=== PATIENT | male | born 1975 | race Caucasian/White ===

== ENCOUNTER 2020-01-26 08:38 | Emergency (ER) | payer OTHER ==
[~2020-01-26] VITALS: Ht 195.6 cm; Wt 86.2 kg
--- OUTSIDE RECORDS SUMMARY | ~2020-01-26 | XMS | Encounter Summary ---
Demographics + + + | Address | [address] | | | [place] [address] | + + + | Home Phone | | + + + | Preferred Language | Unknown | + + + | Marital Status | Single | + + + | Voodoo Affiliation | CHR | + + + | Race | White | + + + | Ethnic Group | Not or | + + + Author + + + | Author | [facility] | + + + | Organization | [facility] | + + + | Address | Unknown | + + + | Phone | Unavailable | + + + Support + + +---------+ + | Name | Relationship | Address | Phone | + + +---------+ + | Apoorva Lugo | ECON | Unknown | | + + +---------+ + Care Team Providers + +------+ + | Care Student Services Dean Name | Role | Phone | + +------+ + | No Pcp Per Patient | PCP | Unavailable | + +------+ + Reason for Visit + + + | Reason | Comments | + + + | Medication Refill | | + + + AUTH/CERT +--------+--------+ + + + + | Status | Reason | Specialty | Diagnoses / | Referred By | Referred To | | | | | Procedures | Contact | Contact | +--------+--------+ + + + + | Closed | | Emergency | | | Emergency | | | | Medicine | | | Dept Hrc | | | | | | | [address] | | | | | | | [facility] | | | | | | | [facility] | | | | | | | [facility] | | | | | | | [place], [place] | | | | | | | [address] | | | | | | | Phone: | | | | | | | [phone] | +--------+--------+ + + + + Encounter Details +--------+ + + + + | Date | Type | Department | Care Team | Description | +--------+ + + + + | 10/13/ | Emergency | [facility] Emergency | Mang, | | | 2010 | | Department [address] | MD William | | | | | [facility] | Inderjit Madrid | | | | | [facility] | [facility] | | | | | [place], [place] | [place] | | | | | [address] | EMERGENCY | | | | | [phone] | [place] [address] | | | | | | [phone] | | | | | | | | +--------+ + + + + Social History + +-------+ +--------+------+ | Tobacco Use | Types | Packs/Day | Years | Date | | | | | Used | | + +-------+ +--------+------+ | Current Every Day | | | | | | Smoker | | | | | + +-------+ +--------+------+ + + | Comments: 1/2 PPD | + + + + +---------+ + | Alcohol Use | Drinks/Week | oz/Week | Comments | + + +---------+ + | Yes | | | rarely | + + +---------+ + + + + | Sex Assigned at | Date Recorded | | | | + + + | Not on file | | + + + documented as of this encounter Last Filed Vital Signs + + + + + | Vital Sign | Reading | Time Taken | Comments | + + + + + | Blood Pressure | 187/79 | 10/13/2010 7:07 AM | | | | | PDT | | + + + + + | Pulse | 94 | 10/13/2010 7:07 AM | | | | | PDT | | + + + + + | Temperature | 36.7 C (98.1 F) | 10/13/2010 7:07 AM | | | | | PDT | | + + + + + | Respiratory Rate | 18 | 10/13/2010 7:07 AM | | | | | PDT | | + + + + + | Oxygen Saturation | 98% | 10/13/2010 7:07 AM | | | | | PDT | | + + + + + | Inhaled Oxygen | - | - | | | Concentration | | | | + + + + + | Weight | - | - | | + + + + + | Height | - | - | | + + + + + | Body Mass Index | - | - | | + + + + + documented in this encounter Discharge Instructions Instructions Dalreen Brown RN - 10/13/2010Thank you for coming to [facility] for your care. Vika rockwell follow up with a primary care physician as we discussed, and if you have any concerns whatsoever, such as a worsening or change in symptoms, please feel free to [facility] at any time. If you have any further questions about your diagnosis, any medication you were prescribed, or whom you should follow up with, please feel free to ask t o have Dr. Dorsey return to the room to clarify any of these issues. Please use pain medications as directed. Please make pain medications last until your appo intment. You must keep your clinic appointment as scheduled. Low Cost Provider Referral Information by [facility] *[facility] Wait time to be seen can be up to 30 days New patients w/o insurance are seen the first of the month, patients to call in @8am [address] [place] [address] *[facility] Low income uninsured individuals and families basis health care services for acute health i ssues managing care for diabetes, asthma, and hypertension, specialist referrals women's exa ms; appts only; Sunday and evening, only 4-8 PM & Sunday 6p-8p. (Note: Planning to increase hours possibly ) [address] [place] [address] [facility] [address] [facility] [address] [place], [place] [address] New Patients: [phone] Mon-Fri 8:30 am to 5pm [facility] Eleven primary care clinics in the [facility] Services are available to uninsured or underinsured persons Costs of services are based on sliding scale Must fill out financial Assistance Application Contact [phone] ([place]) [phone] ([place]) or [phone] to obtain application M-F 8-6:45 *[facility] Financial screening required before an appointment will be made. [address] [facility] [address] Low Cost Provider Referral Information by [facility] *[facility] *[facility] Two decedents of federal recognized [place], required. New patient seen within one week. [address] [place], [place] [address] *[facility] [address], [place] [address] *Outside In Emphasis of patients under age 30 but will serve anyone of low or no income and the uninsur ed. [address] [place], [place] [address] *[facility] Must have low income and no insurance. No walk-in services. [facility] residents only. [address] [place], [place] [address] *[facility] [place] [facility] Locations Clinic for uninsured people only Does not see patients with [place] health Plan or other insurance coverage Dermatology and Podiatry available twice/month [address] [place], [place] [address] *[facility] all ages. Clinics held on Sunday and Sunday evenings. Doors open at 5:30 pm. Patients are accepted until 8 pm, or until clinic fills. No appointment required. [address] [place], [place] [address] (located next to the [facility]) *[facility] for all ages. Clinics held on evenings. Call for an appointment for the [facility]. [phone]. Doors open at 6:30 p.m. Appointment required. Located inside the [facility] at [address] [place] [address] *[facility] A [facility] clinic offering health services to low income uninsured adult residents of [facility] following zip codes: [address], [address], [address], [address], and [address] Does not provide pediatric care, mental health services, and obstetric care, or de ntal care. walk-ins: 5:30 to 8:30 pm with follow ups on Sunday pm. Age Restrictions: Between age 18 and 64. Note will be moving soon to the [facility] at [address] [facility]. [address] [place] [address] *[facility] [address] [place] [address] Serving uninsured and underinsured children up to age 21. [facility] *Federally Qualified Health Clinics [facility]ointments 1 week out M-F 9am - 7pm, S 10am - 2pm [address]. [address] [place], [place] [address] [facility] ([facility] residents, only) [address] [place] [address] [address] [facility] *Federally Qualified Health Clinics [facility] ([facility] residents only) Vision care at [place] and [facility] Mobile van unit for health care Mobile van unit for dental care for children only Children's dental care at [facility], and [place] [address] [facility] [address] [place] [address] [phone] [place], [place] [address] [place], [place] [address] [phone] [facility] (school based health center) [address] [place], [place] [id number] [facility] Provides free urgent care for uninsured individuals and families in [address] [place] [address] [phone] Tues & Thurs 4:30-6:30 pm, ONLY Weds 4:30-6:30 pm, ONLY [facility] *Federally Qualified Health Clinics [facility] (now call center for [facility] and [facility]) [facility] [address] [place] [address] [facility] [address] [place], [place] [id number] [facility] [address] [place], [place] [id number] [facility] Call for an appointment [address] [place] [place] [address] Dental Clinics Dental Service Referral Information for low Income/sponsored/OHP Standard patients. [facility] [address] [place], [place] [phone] [facility] Dental Services [facility] [address] [facility] [address], [place] [address] Please call [phone] for referral between 7:30 am and 6:30 pm to any of the clinics lis emmanuelle below. Service for OHP-[facility] Dental enrollees and emergency service fore uninsured OPH Plus-Co mprehensive dental services for adults and children. No fees for OHP covered with [facility]. Uninsured - Sliding fee based on family size and income. [facility] [address] [place] [address] [place] [address] [phone] For Uninsured [phone] Hours: M-F, 7:30-6:00 pm Hours: M-F 7:30-6:00 pm [facility] [address] [place] [address] [place] [address] [phone] Hours: M-F 7:30-6:00 pm Hours: M-F 7:30-6:00pm Servicfor OHP - [facility] Dental Access Program [phone] Hours: M-F 7:30-6:00pm Provides triage and referral for uninsured, low income adults a and children Refers to the above four clinics for dental care for emergency dental care and limited rout ine care Serve [facility] residents $25 nominal fee required at each visit Additional fees based on family size and income. DENTAL CARE FOR CHILDREN [facility] Center located at [facility] Provides general dentistry for K-12 registered [facility] student Call for appointment, no walk-ins Must qualify for free and reduced lunch and bring approval sheet to dental appointment Sees children with no dental insurance and no OHP No charge for service-donations encouraged [facility] [address] [place] [address] Hours: 8:30-3:00 during academic school year [facility] Dental Clinic Specialized only for children with special health needs and medically fragile children, crayon sawyer niofacial defects, and speech problems. Fees are less than regular clinic fees. [address] 7[address] [place] [address] Hours: M-F 8:30-5:00 to schedule appointments [phone] [facility] Dental Check and Dental Aid Program Annual routine dental checks at schools for low-income children. Contact for annual schedule of dental check dates and school location [address] [place] [address] Contact: Mr. Chen Email: [email or web address] [facility] Provides dental services up to age 21 Call for appointments Accepts most insurance - Medicaid DSHS, OHP, discounts for un-insured [address] [place] [address] Hours: M 2-7, -F 9-7, Sat 9-2 DENTAL CARE FOR THE ELDERLY AND MENTALLY DISABLED [facility] Provide free dental care to low income individuals with developmental disabilities, permane nt disabilities, and the elderly Do not provide emergency care Call for appointments, the wait lists up to one year long in some areas. [address] [address] [place] [address] Hours: - 8-4:30 [facility] Provides services to OHP patients who are non-ambulatory or who have a severe developmental disability or a mental impairment. Services are provided in various settings (nursing homes, group homes, private homes) for t hose who are unable to go to a dental clinic for care. Will provide care for hospital based dental surgery under general anesthesia if patient's n eeds cannot be met in the home setting. [address] [place] [address] [facility] Provides dental care for patient 55 and older; wheelchair accessible New patients: $35 basic fee plus required full mouth x-ray for ($50 $85 total) Returning patients: 20-40% less than a regular clinic [address] [place] [address] Hours: -F 8:30-5 [facility] Provides dental care for low income, uninsured senior age 64 and older Does not provide emergency care or dentures [facility] resident only Call for application packet, after application is processed, referral to a participating de ntist is made 50% reduction for regular dental procedures [address] [place] [phone] CLEANING, X-RAYS, and GENERAL DENTISTRY TeresoBernardino Liu [facility], [place] [facility] Clinic operates on student schedules; closed olivarez Patients seen by appointment only Serves the [facility] Wheelchair access Dental hygiene, teeth cleaning, X-rays, dental exams, fluoride treatments See website for charges [address] [facility] [place] [address] [facility] of Dentistry General Dentistry M-F 8-5 pm Free evaluation Discounted services including dentures, oral surgery, and orthodontics Does not accept Medicaid Specialty clinics [address] [place] [address] [facility] ([facility]) Services by appointment only Emergency services and extraction not provided Provides Hygiene services and X-rays Reduced fees: Children $20, adults $40 (pricing subject to change) Discount for adults 62 years and older [address] [place] [address] [facility] Currently accepting emergencies only, New patients are not currently being accepted M-Th 7:30 to 7; F 7:30 - 5; Sat 8-4 [address] [place] [address] DENTAL VANS [employer] Mobile Dental Program Hotline number: 893-134-4177 Provides free dental to low-income individuals with urgent needs who do not have access to dental care, insurance, or money to pay for services Appointment required. Must call hotline number and leave name and contact number. If appo intment available they will r/c and indicate location and time of appointment Three vans available for [facility], one for [place] M[facility]AL HEALTH SERVICES [facility] Provides mental health and additions treatment services in four different clinics Provides transitional and permanent housing for people with psychiatric disabilities Crisis Line: [phone] Access, Information, and Referral: [phone] [facility] ([facility]) Takes non-sponsored/OHP Take Bus #4 from downwn - it stops in front of clinic Prescirbers available until 10pm Counselors available 18/12 Entrance is at the corner of [address] [place] [address] [facility] [address] [place] [address] [facility] [address], . [place] [address] [facility] [place] [address] [place] [address] PRESCRIPTION DRUG PROGRAMS [place] Prescription Drug Program Available to any [place] resident that is uninsured or underinsured for prescription drug co verage. Enroll on line @ www.opdp.org or by calling Partnership for Prescription Assistance Helps qualifying patients who lack prescription coverage get the medicines they need throug h the public or private program that is right for them Enroll on line @ www.ppars.org or by calling $4 Prescription Programs Available at participating providers such as Syeda, Jeanette, Ramone, etc. documented in this encounter Medications at Time of Discharge + + + +---------+--------+ + | Medication | Sig | Dispensed | Refills | Start | End Date | | | | | | Date | | + + + +---------+--------+ + | acetaminophen | Take 325 mg by mouth | | 0 | | | | (TYLENOL) 325 mg | every four hours as | | | | | | Oral Tablet | needed. | | | | | + + + +---------+--------+ + documented as of this encounter ED Notes Darleen Brown RN - 10/13/2010 7:54 AM PDTRN DISCHARGE NOTE: The patient verbalizes understanding of written discharge/home care instructions as a evide nced by Follow-up plan of care reviewed w/ patient, Pt voiced understanding of plan of care and Written dx instructions reviewed w/ patient. The patient was discharged Ambulatory via Bus with self in no emergent distress. William Rodriguez MD - 10/13/2010 7:14 AM PDT Emergency Department Provider Note 7:14 AM, WILLIAM FRY MD, Faculty Note Provider and Medical Decision Making Note: HPI : Pt is a 35 y/o male who presents to the ED c/o abdominal pain at the site of his ingu inal hernia. Pt was seen in the ED 3 days ago for the same complaint and was given oxycodone for pain control. Pt states that he has an appointment with a surgeon on October 21. Denies n ausea, vomiting and fevers. Pain is the same pain he has been having for several months. No dysuria, hematuria or testicular pain. Review of Systems: A complete review of systems was performed and was negative except as noted in the HPI Reviewed old charts/Medical records for the following findings: Previous notes and results significant to this ED visit. Allergies: Allergies Allergen Reactions Sulfa (Sulfonamide Antibiotics) Angioedema Ibuprofen Aspirin Tramadol Hives PMHx: Past Medical History Diagnosis Date Other general symptoms gamez, chronic back pain Back pain Fam Hx: Reviewed and found to be noncontributory to today's ED visit. Social Hx: History Substance Use Topics Smoking status: Current Everyday Smoker Smokeless tobacco: Never Used Comment: 1/2 PPD Alcohol Use: Yes rarely Denies illicit drug use Physical Exam: ED Triage Vitals BP Temp Pulse Resp SpO2 10/13/10 0707 10/13/10 0707 10/13/10 0707 10/13/10 0707 10/13/10 0707 187/79 mmHg 36.7 C 94 18 98 % PE: BP 187/79 | Pulse 94 | Temp 36.7 C | RR 18 | SpO2 98% General: NAD HEENT: NC+AT, MMM, no oropharyngeal erythema or exudates NECK: Supple LUNGS: CTA b/l HEART: RRR, no murmurs ABDOMEN: Soft, NT+ND, L inguinal mass that is mildly tender but easily reducible. : No testicular tenderness or masses. No erythema. EXTREMITIES: No edema NEURO: A+Ox3, nl gain ED COURSE: Pt presents with chronic abdominal pain at site of L inguinal hernia. No signs or symptoms concerning for incarceration or strangulation. No symptoms of SBO. Afebrile. Benign abdomina l exam. Presentation not concerning for testicular torsion. Pt advised that he needs to foll ow up with a surgeon. He was given a prescription for 24 tabs of oxycodone and was advised t hat he would not receive further pain medication prescriptions from the ED until he follows up with a PCP or surgeon. Pt discharged home with instructions to follow up with a PCP and t o return to the ED for worsening symptoms. Pt voiced understanding of the instructions and w as comfortable with the plan. Condition Upon Discharge: Stable IMPRESSION: 1. Abdominal pain 2. Left inguinal hernia pain Anum Benavides RN - 10/13/2010 7:10 AM PDTPt seen here on 10/10 for left sided abd pain, diagnosed with left inguinal hernia and instructed to follow up with surgery and PCP. Pt has an appointment with surgery October 21, but is out of pain meds and has no PCP. Pt abd pain has not changed since last visit, denies n/v/d. documented in this encounter Miscellaneous Notes Scan - Other, Faculty - 10/14/2010 10:50 AM PDT can - Other, Faculty - 10/14/2010 10:42 AM PDT D Teaching Notes - William Major MD - 10/13/2010 7:14 AM PDTTeaching Attestation: I saw and evaluated the p atient and discussed the findings, diagnosis and management of the patient with the Resident Dr. Dorsey. I performed and confirmed the reyes portions of the service. The resident and I co-wrote the ED Provider Note using the Farm[employer] share function. I agree with the documentation, findings, and plan of care except as noted by me in bold. documented in thi s encounter Plan of Treatment Not on filedocumented as of this encounter Visit Diagnoses + + | Diagnosis | + + | Inguinal hernia - Primary Inguinal hernia without mention of obstruction or gangrene, | | unilateral or unspecified, (not specified as recurrent) | + + documented in this encounter"
--- OUTSIDE RECORDS SUMMARY | ~2020-01-26 | XMS | Encounter Summary ---
Demographics + + + | Address | [address] | | | [place] [address] | + + + | Home Phone | | + + + | Preferred Language | Unknown | + + + | Marital Status | Single | + + + | Hindu Affiliation | CHR | + + + | Race | White | + + + | Ethnic Group | Not or | + + + Author + + + | Author | [facility] | + + + | Organization | [facility] | + + + | Address | Unknown | + + + | Phone | Unavailable | + + + Support + + +---------+ + | Name | Relationship | Address | Phone | + + +---------+ + | Apoorva Lugo | ECON | Unknown | | + + +---------+ + Care Team Providers + +------+ + | Care Rehabilitation Therapy Aide Name | Role | Phone | + +------+ + | No Pcp Per Patient | PCP | Unavailable | + +------+ + Reason for Visit + + + | Reason | Comments | + + + | Dental Pain | | + + + Encounter Details +--------+ + + + + | Date | Type | Department | Care Team | Description | +--------+ + + + + | 06/25/ | Emergency | [facility] | Bob Burnett, | | | 2009 | | Department [address] | [facility] [address] | | | | | [address] | Division [facility] | | | | | [facility] | [address] [place], [place] | | | | | [place], [place] | [address] | | | | | [address] | [phone] | | | | | [phone] | | | +--------+ + + + [...] + + + | Blood Pressure | 156/84 | 06/25/2009 12:07 PM | | | | | PST | | + + + + + | Pulse | 89 | 06/25/2009 12:07 PM | | | | | PST | | + + + + + | Temperature | 36.8 C (98.2 F) | 06/25/2009 12:07 PM | | | | | PST | | + + + + + | Respiratory Rate | 16 | 06/25/2009 12:07 PM | | | | | PST | | + + + + + | Oxygen Saturation | 97% | 06/25/2009 12:07 PM | | | | | PST | | + + + + + | Inhaled Oxygen | - | - | | | Concentration | | | | + + + + + | Weight | 99.8 kg (220 lb) | 06/25/2009 12:07 PM | | | | | PST | | + + + + + | Height | - | - | | + + + + + | Body Mass Index | - | - | | + + + + + documented in this encounter Discharge Instructions Instructions Bob Burnett FNP - 06/25/2009Please see your dentist on Sunday as planned . Return to the emergency department if you have facial swelling, problems swallowing or fe vers. You will not receive any further pain medication refills. Dental Pain (Tooth Ache) You have been seen by your caregiver because of a tooth ache. This may be caused by cavitie s (tooth decay) which expose the nerve of the tooth to air and hot or cold temperatures, whi ch cause pain. It may come from an infection or abscess (also called a boil or furuncle) becca und your tooth, also often caused by dental caries (tooth decay). This causes the pain you a re having. Diagnosis (how do you tell what is wrong) Your caregiver can diagnose this problem often by exam. Treatment If caused by an infection it may be treated with antibiotics (medications which kill shoaib ms) and pain medications as prescribed by your caregiver. Take medications as directed. You may take ibuprofen (Advil or Motrin), acetaminophen (Tylenol), or both, as needed for pain or temperature. Ibuprofen and acetaminophen may be taken together in their regular dosages. Whether the tooth ache today is caused by infection or dental disease, it is advisable to s ee your dentist as soon as possible for further care. Call or return to this location if: The exam and treatment you received today has been provided on an emergency basis only. Thi s is not a substitute for complete medical or dental care. If your problem worsens or new sy mptoms (problems) appear, and you are unable to arrange prompt follow-up care with your dent ist, call or return to this location. [facility] 2007 [employer]. documented in this encounter ED Notes Mara Laura - 06/25/2009 12:48 PM PSTRN DISCHARGE NOTE: The patient verbalizes understanding of written discharge/home care instructions as a evide nced by Follow-up plan of care reviewed w/ patient, Pt voiced understanding of plan of care and Written dx instructions reviewed w/ patient. The patient was discharged Ambulatory via Private Vehicle with self in no emergent distress. Monica TerrieDAREN oscar - 06/25/2009 12:46 PM PST Dental Pain 34 yo male with persistent LL dental pain for 2 weeks. This is his fourth visit for the s [place] complaint. He denies, fever, oral edema or nausea. He has been taking penicillin with so me improvement in pus draining from tooth # 19. He states he has been taking 2 tablets of o xycodone Q 4 hr to keep the pain tolerable. He has been unable to sleep and states he has so me relief standing in a hot shower. Review of Systems Constitutional: Negative for fever, chills, weight loss and malaise/fatigue. HENT: Positive for dental problem. Negative for ear pain, congestion, sore throat and neck pain. Eyes: Negative for blurred vision and photophobia. Respiratory: Negative for cough, hemoptysis and stridor. Cardiovascular: Negative for chest pain and palpitations. Gastrointestinal: Negative. Negative for nausea and vomiting. Genitourinary: Negative. Musculoskeletal: Negative for myalgias and back pain. Skin: Negative for rash and itching. No h/o skin rash Psychiatric/Behavioral: Negative for substance abuse. Denies IVDU Past Medical History Diagnosis Date Other general symptoms gamez, chronic back pain Allergies Allergen Reactions Ibuprofen Aspirin Tramadol Hives Social History reports that he has been using tobacco. He reports that he drinks alcohol. He reports th at he does not currently use illicit drugs. Drove self to ED works 2 days a week [employer], short on money as work is slow. ED Triage Vitals BP Temp Pulse Resp SpO2 06/25/09 1207 06/25/09 1207 06/25/09 1207 06/25/09 1207 06/25/09 1207 156/84 mmHg 36.8 C 89 16 97 % Physical Exam Nursing note and vitals reviewed. Constitutional: He is oriented. He appears well-developed and well-nourished. He appears no t diaphoretic. He appears distressed. HENT: Head: Normocephalic and atraumatic. Right Ear: External ear normal. Left Ear: External ear normal. Nose: Nose normal. Mouth/Throat: Oropharynx is clear and moist. No oropharyngeal exudate. Neck: Normal range of motion. Single shoty L cervical node. Cardiovascular: Normal rate, regular rhythm and normal heart sounds. No murmur heard. Pulmonary/Chest: Effort normal and breath sounds normal. He has no wheezes. He has no rales . Abdominal: Soft. Musculoskeletal: Normal range of motion. Lymphadenopathy: He has cervical adenopathy. Neurological: He is alert and oriented. He has normal reflexes. Skin: Skin is warm and dry. He is not diaphoretic. Clinical Course: Triaged to , vital signs and nursing notes reviewed. I have reviewed the medications, all ergies, past medical history, social history, and family history. Differential diagnosis includes: dental abscess, dental caries or early tooth root infectio n. Given nothing for pain. As he drove to the ED. No evidence of dental abscess. He was advise d no further pain med refill from ED. He may have a persistent infection so we will change to clindamycin and peridex. Advised to f/u with primary care dentist in 4 days as planned Assessment and Plan: Encounter Diagnoses Code Name Primary? 525.9V Dentalgia rx: New Prescriptions CHLORHEXIDINE 0.12 % MUCOUS MEMBRANE MOUTHWASH Take 15 mL by mouth every six hours. CLINDAMYCIN 300 MG ORAL CAPSULE Take 1 Cap by mouth every six hours. OXYCODONE, IMMEDIATE RELEASE, 5 MG ORAL TABLET Take 2 Tabs by mouth every six hours as needed for severe pain. F/U with dentist on Sunday. Given precautions to return for fever, facial swelling or diff iculty swallowing. No further pain meds. DAREN RAMIREZ Patricio Hernandez RN - 06/25/2009 12:07 PM PSTPt c/o 7/10 L lower molar pain x 2 weeks. Has appt with dentist to day but can't afford co-pay. appt rescheduled for Tues when pt has money. Pt seen here for same tooth, given Rx for PCN, no improvement. No fever/chills. No obvious facial swelling . Airway intact. docum ented in this encounter Miscellaneous Notes ED Teaching Notes - Bob Burnett FNP - 06/26/2009 9:03 PM PSTNo resident note needed cchava - Carlyle, Lucinda y - 06/25/2009 12:49 PM PST documented in this encounter Plan of Treatment Not on filedocumented as of this encounter Visit Diagnoses + + | Diagnosis | + + | Dentalgia Unspecified disorder of the teeth and supporting structures | + + documented in this encounter"
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
--- OUTSIDE RECORDS SUMMARY | ~2020-01-26 | XMS | Encounter Summary ---
Demographics + + + | Address | [address] | | | [place] [address] | + + + | Home Phone | | + + + | Preferred Language | Unknown | + + + | Marital Status | Single | + + + | Jainism Affiliation | CHR | + + + | Race | White | + + + | Ethnic Group | Not or | + + + Author + + + | Author | [facility] | + + + | Organization | [facility] | + + + | Address | Unknown | + + + | Phone | Unavailable | + + + Support + + +---------+ + | Name | Relationship | Address | Phone | + + +---------+ + | Apoorva Lugo | ECON | Unknown | | + + +---------+ + Care Team Providers + +------+ + | Care Ropewalk Rope Maker Name | Role | Phone | + [...] | +--------+ + + + + | 06/14/ | Emergency | [facility] Emergency | Flaquita Lim | | | 2009 | | Department [address] | | | | | [address] | | | | | | [facility] | | | | | | [place], [place] | | | | | | [address] | | | | | | [phone] | | | +--------+ + + + + Social History + +-------+ +--------+------+ | Tobacco Use | Types | Packs/Day | Years | Date | | | | | Used | | + +-------+ +--------+------+ | Current Every Day | | | | | | Smoker | | | | | + +-------+ +--------+------+ + + +---------+ + | Alcohol Use | Drinks/Week | oz/Week | Comments | + + +---------+ + | No | | | | + + +---------+ + + + [...] + + + | Blood Pressure | 164/90 | 06/14/2009 10:29 AM | | | | | PST | | + + + + + | Pulse | 107 | 06/14/2009 10:29 AM | | | | | PST | | + + + + + | Temperature | 36.4 C (97.5 F) | 06/14/2009 10:29 AM | | | | | PST | | + + + + + | Respiratory Rate | 16 | 06/14/2009 10:29 AM | | | | | PST | | + + + + + | Oxygen Saturation | 98% | 06/14/2009 10:29 AM | | | | | PST | | + + + + + | Inhaled Oxygen | - | - | | | Concentration | | | | + + + + + | Weight | 99.8 kg (220 lb) | 06/14/2009 10:29 AM | | | | | PST | | + + + + + | Height | - | - | | + + + + + | Body Mass Index | - | - | | + + + + + documented in this encounter Discharge Instructions Instructions Flaquita Lim, SAMPLE BOOK MAKER - 06/14/2009Dental Pain (Tooth Ache) You have been seen [...] ist, call or return to this location. ExitCare Patient Information 2007 Tauntr. Low Cost Provider Referral Information by [facility] *[facility] Wait time to be seen can be up to 30 days New patients w/o insurance are seen the first of the month, patients to call in @8am [address] [place] [phone] *[facility] Low income uninsured individuals and families basis health care services for acute health i ssues managing care for diabetes, asthma, and hypertension, specialist referrals women's exa ms; appts only; Sunday and evening, only 4-8 PM & Sunday 6p-8p. (Note: Planning to increase hours possibly ) [address] [place] [address] [address] [place] Nicole [address] [place], [place] [address] New Patients: [phone] Sun-Sun 8:30 am to 5pm [facility] Eleven primary care clinics in the [facility] Services are available to uninsured or underinsured persons Costs of services are based on sliding scale Must fill out financial Assistance Application Contact [phone] ([place]) [phone] ([place]) or [phone] to obtain application M-F 8-6:45 *[facility] Financial screening required before an appointment will be made. [address] [facility] [address] Low Cost Provider Referral Information by [facility] *Federally Qualified Health Clinics *[facility] Two decedents of federal recognized [place], required. New patient seen within one week. [address] [place], [place] [address] *[facility] [address] [place], [place] [id number] *Outside In Emphasis of patients under age 30 but will serve anyone of low or no income and the uninsur ed. [address] [place], [place] [id number] *[facility] Must have low income and no insurance. No walk-in services. [facility] residents only. [address] [place], [place] [address] *[facility] Locations Clinic for uninsured people only Does not see patients with [place] health Plan or other insurance coverage Dermatology and Podiatry available twice/month [address] [place], [place] [address] *[facility] Services all ages. Clinics held on Sunday and Sunday evenings. Doors open at 5:30 pm. Patients are accepted until 8 pm, or until clinic fills. No appointment required. [address] [place], [place] [address] (located next to the [facility]) *[facility] Services for all ages. Clinics held on evenings. Call for an appointment for the [facility]. [phone]. Doors open at 6:30 p.m. Appointment required. Located inside the [facility] at [address] [place], [place] [address] *[facility] A neighborhood clinic offering health services to low income uninsured adult residents of [facility] following zip codes: [address], [address], [address], [address], and [address] Does not provide pediatric care, mental health services, and obstetric care, or de ntal care. walk-ins: 5:30 to 8:30 pm with follow ups on Sunday pm. Age Restrictions: Between age 18 and 64. Note will be moving soon to the [facility] at [address] [facility]. [address] [place] [address] *[facility] [address] [place] [address] Serving uninsured and underinsured children up to age 21. [facility] *[facility] Appointments 1 week out M-F 9am - 7pm, S 10am - 2pm [address] [place], [place] [address] [facility] ([facility] residents, only) [address] [place], [place] [address] [address] [facility] *Federally Qualified Health Clinics [facility] ([facility] residents only) Vision care at [place] and [facility] Mobile van unit for health care Mobile van unit for dental care for children only Children's dental care at [place], [place], and [place] [address] [facility] [address] [place], [place] [phone] [place], [place] [address] [place], [place] [address] [phone] [facility] (school based health center) [address] [place], [place] [id number] [facility] Provides free urgent care for uninsured individuals and families in [address] [phone] Tues & Thurs 4:30-6:30 pm, ONLY Weds 4:30-6:30 pm, ONLY [facility] *Federally Qualified Health Clinics [facility] (now call center for [facility] and [facility]) [place] [address] [place], [place] [address] [facility] [address] [place] [address] [address] [place] [facility] [address] [place] [address] [facility] Call for an appointment [address] [place], [place] [id number] Dental Clinics Dental Service Referral Information for low Income/sponsored/OHP Standard patients. [facility] [address], [place] [phone] [facility] Dental Services [facility] [address] [facility]. 9th [place] [address] Please call [phone] for referral between 7:30 am and 6:30 pm to any of the clinics lis emmanuelle below. Service for OHP-[facility] Dental enrollees and emergency service fore uninsured OPH Plus-Co mprehensive dental services for adults and children. No fees for OHP covered with Multi[facility]. Uninsured - Sliding fee based on family size and income. [facility] [address] [place] [address] [place] [address] [phone] For Uninsured [phone] Hours: M-F, 7:30-6:00 pm Hours: M-F 7:30-6:00 pm [facility] [address] [place] [address] [place] [address] [phone] Hours: M-F 7:30-6:00 pm Hours: M-F 7:30-6:00pm Servicfor OHP - [facility] Dental Access Program [phone] Hours: M-F 7:30-6:00pm Provides triage and referral for uninsured, low income adults a and children Refers to the above four clinics for dental care for emergency dental care and limited rout ine care Serve [facility] residents $25 nominal fee required at each visit Additional fees based on family size and income. DENTAL CARE FOR CHILDREN [facility] located at [facility] Provides general dentistry for K-12 registered [facility] student Call for appointment, no walk-ins Must qualify for free and reduced lunch and bring approval sheet to dental appointment Sees children with no dental insurance and no OHP No charge for service-donations encouraged [facility] [address] [place], [place] [id number] Hours: 8:30-3:00 during academic school year [facility] Clinic [facility] Dental Clinic Specialized only for children with special health needs and medically fragile children, crawler tractor operator niofacial defects, and speech problems. Fees are less than regular clinic fees. [address], 7th [place] [address] Hours: M-F 8:30-5:00 to schedule appointments [phone] [facility] Dental Check and Dental Aid Program Annual routine dental checks at schools for low-income children. Contact for annual schedule of dental check dates and school location [address] [place] [address] Contact: Mr. Chen Email: [email or web address] Provides dental services up to age 21 Call for appointments Accepts most insurance - Medicaid DSHS, OHP, discounts for un-insured [address] [place] [address] Hours: M 2-7, - 9-7, Sat 9-2 DENTAL CARE FOR THE ELDERLY AND MENTALLY DISABLED [facility] Provide free dental care to low income individuals with developmental disabilities, permane nt disabilities, and the elderly Do not provide emergency care Call for appointments, the wait lists up to one year long in some areas. [address] [address] [place] [address] [phone] Hours: M-F 8-4:30 [facility] Provides services [...] home setting. [address] [place], [place] [phone] [facility] Provides dental care for patient 55 and older; wheelchair accessible New patients: $35 basic fee plus required full mouth x-ray for ($50 $85 total) Returning patients: 20-40% less than a regular clinic [address] [place] [facility] [place] [address] Hours: M- 8:30-5 [facility] Provides dental care for low income, uninsured senior age 64 and older Does not provide emergency care or dentures [facility] resident only Call for application packet, after application is processed, referral to a participating de ntist is made 50% reduction for regular dental procedures [address] [address] [place] [phone] CLEANING, X-RAYS, and GENERAL DENTISTRY [facility] Clinic operates on student schedules; closed Patients seen by appointment only Serves the General acute hospital Wheelchair access Dental hygiene, teeth cleaning, X-rays, dental exams, fluoride treatments See website for charges [address] [place] [address] [facility] Dentistry General Dentistry - 8-5 pm Free evaluation Discounted services including dentures, oral surgery, and orthodontics Does not accept Medicaid Specialty clinics [address] [place] [phone] [facility] ([facility]) Services by appointment only Emergency services and extraction not provided Provides Hygiene services and X-rays Reduced fees: Children $20, adults $40 (pricing subject to change) Discount for adults 62 years and older [address] [address] [address] [place] [address] [facility] Currently accepting emergencies only, New patients are not currently being accepted M- 7:30 to 7; F 7:30 - 5; Sat 8-4 [address] [place] [phone] DENTAL VANS [employer] Mobile Dental Program Hotline number: [phone] Provides free dental to low-income individuals with urgent needs who do not have access to dental care, insurance, or money to pay for services Appointment required. Must call hotline number and leave name and contact number. If appo intment available they will r/c and indicate location and time of appointment Three vans available for [facility], one for [facility] HEALTH SERVICES [facility] Provides mental health and additions treatment services in four different clinics Provides transitional and permanent housing for people with psychiatric disabilities Crisis Line: [phone] Access, Information, and Referral: [phone] [facility] ([address] [facility]) Takes non-sponsored/OHP Take Bus #4 from [place] - it stops in front of clinic Prescirbers available until 10pm Counselors available 18/12 Entrance is at the corner of [address], [place] [address] [facility] [address] [facility] [address] [place] [address] [facility] [address] [place] [address] [facility] [address] [address] PRESCRIPTION DRUG PROGRAMS [place] Prescription Drug Program Available to any [place] resident that is uninsured or underinsured for [...] Jeanette, Ramone, etc. documented in this encounter ED Notes Isadora Stewart - 06/14/2009 11:12 AM PST..SIGN FABRICATOR NOTE: The patient verbalizes understanding of written discharge/home care instructions as a evide nced by Follow-up plan of care reviewed w/ patient, Pt voiced understanding of plan of care, Written dx instructions reviewed w/ patient and Patient advised not to drive. The patient was discharged Ambulatory via Private Vehicle with self in no emergent distress.Electronical ly signed by Isadora Stewart at 06/14/2009 11:12 AM Flaquita Palomino, SAMPLE BOOK MAKER - 06/14/19 10 10:38 AM PST HPI 34 yo male presents back to the ED with continued dental pain. Seen yesterday for the s [place] pain, out of out oxycodone, given #12, requesting refill. Sitting in dark holding face. Denies fever, chills, diarrhea. Has had foul taste occasionally draining from right upper to oth, main pain is lower left molar. Fills mouth with cold water, helps take the pain away. ROS HPI, otherwise (-) Past Medical History Diagnosis Date Other general symptoms gamez, chronic back pain Past Surgical History none No current hospital medications on file prior to encounter. Current outpatient prescriptions prior to encounter acetaminophen 325 mg Oral Tablet take 1 tablet (325 mg) by oral route every 4 hours as needed cyclobenzaprine (FLEXERIL) 5 mg Oral Tablet take 1 tablet (5 mg) by oral route 3 times per day oxycodone (immediate release) 5 mg Oral Tablet 1-2 tablets (10 mg) by oral route every 4 hours as needed for pain 20 0 oxycodone, immediate release, 5 mg Oral Tablet Take 1 Tab by mouth every three hours as needed. 12 Tab 0 penicillin v potassium 250 mg Oral Tablet Take 1 Tab by mouth every six hours. 40 Tab 0 Allergies Allergen Reactions Ibuprofen Aspirin Tramadol Hives Social History reports that he has been using tobacco. He reports that he does not currently drink alcoh ol or use illicit drugs. Family History [place] ED Triage Vitals BP Temp Pulse Resp SpO2 06/14/09 1029 06/14/09 1029 06/14/09 1029 06/14/09 1029 06/14/09 1029 164/90 mmHg 36.4 C 107 16 98 % Physical Exam Nursing note and vitals reviewed. Constitutional: He is oriented. He appears well-developed and well-nourished. HENT: Mouth/Throat: Uvula is midline, oropharynx is clear and moist and mucous membranes are norm al. Multiple fillings. General poor dentition. #18? With main c/o pain with filling, no gi ngival erythema, swelling, TTP surrounding tooth. No Sublingual swelling or LAD. Cardiovascular: Normal rate, regular rhythm, normal heart sounds and intact distal pulses. Exam reveals no gallop and no friction rub. No murmur heard. Pulmonary/Chest: Effort normal and breath sounds normal. Neurological: He is alert and oriented. No cranial nerve deficit. Skin: Skin is warm and dry. Psychiatric: He has a normal mood and affect. His behavior is normal. Judgment and thought content normal. Clinical Course: The patient was brought to the ED via drove self. The patient was triaged to Rm 35. I gamez ve reviewed the NN, VS, medications, allergies, past medical history, social history, and fa humphrey history. No e/o abscess, requesting medication refill of oxycodone. Today is a holiday, unable to contact dental resources to arrange appointment. Taking PCN. I explained and disc ussed expected course of recovery, treatment(s) and reasons to return to the ED. The patient stated understanding. Assessment and Plan: Dentalgia Medication Refill DC Home Stable, ambulatory Rx: Oxycodone #40, continue PCN Low cost clinic list reprovided Return with acute worsening DAREN Michel Cee Sorenson RN - 06/14/2009 10:29 AM PSTPt reports being seen here 2 days ago for same, out of oxycodone, re questing med refill, c/o of continued R lower dental pain, no nvdf/chills. No PCP establishe d. documented in this encou nter Miscellaneous Notes Scan - Other, Faculty - 06/14/2009 11:18 AM PST ED Teaching Notes - Flaquita Lim FNP - 06/14/2009 11:10 AM PSTNone neededElectroni airam signed by DAREN Caban at 06/14/2009 11:10 AM PSTED Teaching Notes - Flaquita Hawley FNP - 06/14/2009 10:39 AM PSTNone needed documented in this encounter Plan of Treatment Not on filedocumented as of this encounter Visit Diagnoses + + | Diagnosis | + + | Dentalgia Unspecified disorder of the teeth and supporting structures | + + | Medication refill Issue of repeat prescriptions | + + documented in this encounter"
--- OUTSIDE RECORDS SUMMARY | ~2020-01-26 | XMS | Encounter Summary ---
Demographics + + + | Address | [address] | | | [place] [address] | + + + | Home Phone | | + + + | Preferred Language | Unknown | + + + | Marital Status | Single | + + + | Judaism Affiliation | CHR | + + + | Race | White | + + + | Ethnic Group | Not or | + + + Author + + + | Author | [facility] | + + + | Organization | [facility] | + + + | Address | Unknown | + + + | Phone | Unavailable | + + + Support + + +---------+ + | Name | Relationship | Address | Phone | + + +---------+ + | Apoorva Lugo | ECON | Unknown | | + + +---------+ + Care Team Providers + +------+ + | Care Reuse Technician Name | Role | Phone | + +------+ + | No Pcp Per Patient | PCP | Unavailable | + +------+ + Encounter Details +--------+ + + + + | Date | Type | Department | Care Team | Description | +--------+ + + + + | 03/06/ | Telephone | [facility] | Eddie Hopkins | | | 2015 | | [facility] [address] | V, DMD [address] | | | | | [address] | [address] | | | | | [facility] | [place], [place] | | | | | [place], [facility] Floor | [phone] | | | | | [place], [place] | [phone] | | | | | [address] | | | | | | [phone] | | | +--------+ + + + + Social History + +-------+ +--------+------+ | Tobacco Use | Types | Packs/Day | Years | Date | | | | | Used | | + +-------+ +--------+------+ | Current Every Day | | | | | | Smoker | | | | | + +-------+ +--------+------+ + +---+---+---+ | Smokeless Tobacco: | | | | | Former User | | | | + +---+---+---+ + + | Comments: 1/2 PPD | + + + + +---------+ + | Alcohol Use | Drinks/Week | oz/Week | Comments | + + +---------+ + | Yes | 0 Standard drinks | 0.0 | rarely | | | or equivalent | | | + + +---------+ + + + + | Sex Assigned at | Date Recorded | | | | + + + | Not on file | | + + + documented as of this encounter Miscellaneous Notes Telephone Encounter - Sandor Garcia - 09/16/2019 11:29 AM PDTThis encounter has been admin istratively closed with the authorization of the [facility] Committee. elephone Encounter - Alejandra Nye - 03/06/2016 1:15 PM PDTNurse practitioner Laine from the [facility] is calling in because the chart notes that were sent over are "extreamly confusing" and s he is wanting to speak to Dr. Hopkins. Laine can be reached at [phone] si gned by Alejandra Austin at 03/06/2016 1:18 PM PDTdocumented in this encounter Plan of Treatment Not on filedocumented as of this encounter Visit Diagnoses Not on filedocumented in this encounter
--- OUTSIDE RECORDS SUMMARY | ~2020-01-26 | XMS | Encounter Summary ---
Demographics + + + | Address | [address] [facility] | | | [place] [address] | + + + | Home Phone | | + + + | Preferred Language | Unknown | + + + | Marital Status | Single | + + + | Yazdanism Affiliation | CHR | + + + | Race | White | + + + | Ethnic Group | Not or | + + + Author + + + | Author | [facility] | + + + | Organization | [facility] | + + + | Address | Unknown | + + + | Phone | Unavailable | + + + Support + + +---------+ + | Name | Relationship | Address | Phone | + + +---------+ + | Apoorva Lugo | ECON | Unknown | | + + +---------+ + Care Team Providers + +------+ + | Care Plate Inspector Name | Role | Phone | + +------+ + | No Pcp Per Patient | PCP | Unavailable | + +------+ + Reason for Visit + + + | Reason | Comments | + + + | Follow-up visit | | + + + Consultation (Routine) +--------+--------+ + + + + | Status | Reason | Specialty | Diagnoses / | Referred By | Referred To | | | | | Procedures | Contact | Contact | +--------+--------+ + + + + | Closed | | Trauma Center | Diagnoses | [facility] | Tra [facility] | | | | | Inguinal | Epic Dept | [facility] | | | | | hernia | | [address] | | | | | [address] | | | | | | | Physicians | | | | | | | Pavilion, [address] | | | | | | | Floor | | | | | | | [place], [place] | | | | | | | [address] | | | | | | | Phone: | | | | | | | [phone] | | | | | | | Fax: | | | | | | | [phone] | +--------+--------+ + + + + Encounter Details +--------+---------+ + + + | Date | Type | Department | Care Team | Description | +--------+---------+ + + + | 10/21/ | Office | Trauma Emergency | [facility] [id number] | Inguinal hernia | | 2010 | Visit | General Surgery at | [facility] | (Primary Dx) | | | | [facility] [address] [place], [place] | | | | | [address] | [address] | | | | | Phys[facility] [place], | | | | | | [address]nd Floor | | | | | | [place], [place] | | | | | | [address] | | | | | | [phone] | | | +--------+---------+ + + + Social History + +-------+ [...] + + + | Blood Pressure | 140/90 | 10/21/2010 1:24 PM | | | | | PDT | | + + + + + | Pulse | 80 | 10/21/2010 1:24 PM | | | | | PDT | | + + + + + | Temperature | 36.7 C (98.1 F) | 10/21/2010 1:24 PM | | | | | PDT | | + + + + + | Respiratory Rate | - | - | | + + + + + | Oxygen Saturation | - | - | | + + + + + | Inhaled Oxygen | - | - | | | Concentration | | | | + + + + + | Weight | 104.5 kg (230 lb 4.8 | 10/21/2010 1:24 PM | | | | oz) | PDT | | + + + + + | Height | - | - | | + + + + + | Body Mass Index | - | - | | + + + + + documented in this encounter Progress Notes Romario Menchaca MD - 10/31/2010 11:32 AM PDTFormatting of this note might be different fr om the original. Chief complaint: inguinal hernia with pain HPI: this patient is a 35 yo man presenting with a left inguinal hernia. He has had this he rnia for about a year. He reports that is reducible but is causing serious pain. He states t he pain radiates to his scrotum. He denies nausea, vomiting, fevers, cellulitis. He reports no problems urinating and no problems with constipation. He has been treating the pain with oxycodone and tylenol. Other ROS negative PMH: Shoulder and back pain Surgical Hx: None ALL: Allergies Allergen Reactions Sulfa (Sulfonamide Antibiotics) Angioedema Ibuprofen Aspirin Tramadol Hives MEDS: Tylenol Oxycodone Social Hx: 1/2 ppd smoker Has 2-3 beers several times a week PE: BP 140/90 | Pulse 80 | Temp (Src) 36.7 C (98.1 F) (Oral) | Wt 104.463 kg (230 lb 4.8 oz ) Appears in NAD CV:RRR CH:CTAB AB:soft/nt/nd Groin: Large Left inguinal hernia reducible. Painful on reduction. Right groin no hernia ap preciated. EXT:WNL A/P: 35 yo M with left inguinal hernia. He is a candidate for hernia repair. I discussed th e risks including bleeding, infection, chronic pain, and recurrence. I detailed the signs an d symptoms of strangulation. I refilled his pain medications. He has applied for financial a id and we will schedule him for surgery when possible. Romario Menchaca MD Case Management Manager Trauma, Critical Care, and Acute Care Surgery documented in this e ncounter Plan of Treatment Not on filedocumented as of this encounter Visit Diagnoses + + | Diagnosis | + + | Inguinal hernia - Primary Inguinal hernia without mention of obstruction or gangrene, | | unilateral or unspecified, (not specified as recurrent) | + + documented in this encounter"
--- OUTSIDE RECORDS SUMMARY | ~2020-01-26 | XMS | Encounter Summary ---
Demographics + + + | Address | [address] | | | [place] [address] | + + + | Home Phone | | + + + | Preferred Language | Unknown | + + + | Marital Status | Single | + + + | Worship Affiliation | CHR | + + + | Race | White | + + + | Ethnic Group | Not or | + + + Author + + + | Author | [facility] | + + + | Organization | [facility] | + + + | Address | Unknown | + + + | Phone | Unavailable | + + + Support + + +---------+ + | Name | Relationship | Address | Phone | + + +---------+ + | Apoorva Lugo | ECON | Unknown | | + + +---------+ + Care Team Providers + +------+ + | Care Toucher Up Name | Role | Phone | + +------+ + | No Pcp Per Patient | PCP | Unavailable | + +------+ + Reason for Visit + + + | Reason | Comments | + + + | Mouth Pain | | + + + Encounter Details +--------+ + + + + | Date | Type | Department | Care Team | Description | +--------+ + + + + | 06/13/ | Emergency | [facility] Emergency | Cristina Velasco MD | | | 2009 | | Department [address] | | | | | | [address] | | | | | | [facility] | | | | | | [place], [place] | | | | | | [address] | | | | | | [phone] | | | +--------+ + + + [...] + + + | Blood Pressure | 154/77 | 06/13/2009 5:38 AM | | | | | PST | | + + + + + | Pulse | 98 | 06/13/2009 5:38 AM | | | | | PST | | + + + + + | Temperature | 36 C (96.8 F) | 06/13/2009 4:48 AM | | | | | PST | | + + + + + | Respiratory Rate | 16 | 06/13/2009 5:38 AM | | | | | PST | | + + + + + | Oxygen Saturation | 96% | 06/13/2009 5:38 AM | | | | | PST | | + + + + + | Inhaled Oxygen | - | - | | | Concentration | | | | + + + + + | Weight | 99.8 kg (220 lb) | 06/13/2009 4:48 AM | | | | | PST | | + + + + + | Height | - | - | | + + + + + | Body Mass Index | - | - | | + + + + + documented in this encounter Discharge Instructions Instructions Ugo Sanchez MD - 06/13/2009Dental Caries Dental caries (tooth decay) is the most common of all oral diseases. Because the average in [facility] has their first experience with this disease in childhood, it is particularly impor tant to deal with it from the 1st to their 12th year of life. In these years, the milk (baby ) teeth erupt, exfoliate (baby teeth are replaced by the permanent teeth), and the permanent teeth, excluding the 3rd molars, erupt (come out) into their working position. For early treatment of dental caries, the age a child gets their first dental checkup is re commended to be between one and one-half and two years of age, before any extensive cavities are established. Dental caries often appears as a white chalky area on the enamel. It later softens, and the n the tooth structure breaks down. If not treated in the initial stages, it progresses towar ds the pulp, and will then require more extensive treatment to save the tooth. PREVENTION In children, dentistry is mainly aimed towards prevention of dental cavities. Fissure sealants can help with prevention. Sealants are flowable composite resins applie d onto surfaces of susceptible (at risk) teeth. They smooth out the fissures and pits, and p revent food entrapment that causes decay. Fluoride tablets may also be prescribed in the children over 3 years of age, if drinking wa ter is not fluoridated. The fluoride absorbed gets incorporated into the tooth enamel and ma kes them less susceptible to caries. Thorough daily cleaning with toothbrush and dental floss is the best way to prevent cavitie s. Regular visits with a dentist for check-ups and cleanings is also very important. ExitCare Patient Information 2006 [employer]. Low Cost Provider Referral Information by [facility] *[facility] Wait time to be seen can be up to 30 days New patients w/o insurance are seen the first of the month, patients to call in @8am [address] [place] [phone] *[facility] Low income uninsured individuals and families basis health care services for acute health i ssues managing care for diabetes, asthma, and hypertension, specialist referrals women's exa ms; appts only; Sunday and evening, only 4-8 PM & Sunday 6p-8p. (Note: Planning to increase hours possibly ) [address] [place] [address] Sunita [place]wood [place] Nicole [address] [facility] [address] [place], [place] [address] New Patients: [phone] Sun-Sun 8:30 am to 5pm [facility] Eleven primary care clinics in the [facility] Services are available to uninsured or underinsured persons Costs of services are based on sliding scale Must fill out financial Assistance Application Contact [phone] ([place]) [phone] ([place]) or [phone] to obtain application M-F 8-6:45 *[facility] Financial screening required before an appointment will be made. [address] [facility] [address] Low Cost Provider Referral Information by [facility] *Federally Qualified Health Clinics *[facility] Two decedents of federal recognized [place], required. New patient seen within one week. [address] [place], [place] [address] *[facility] [address], [place] [id number] *Outside In Emphasis of patients under age 30 but will serve anyone of low or no income and the uninsur ed. [address] [place], [place] [id number] *[facility] Must have low income and no insurance. No walk-in services. [facility] residents only. [address] [place], [place] [address] *[facility] Locations Clinic for uninsured people only Does not see patients with [place] health Plan or other insurance coverage Dermatology and Podiatry available twice/month [address] [place], [place] [address] *[facility] Services all ages. Clinics held on Sunday and Sunday evenings. Doors open at 5:30 pm. Patients are accepted until 8 pm, or until clinic fills. No appointment required. [address] [place], [place] [address] (located next to the [facility]) *[facility] Services for all ages. Clinics held on evenings. Call for an appointment for the [facility]. [phone]. Doors open at 6:30 p.m. Appointment required. Located inside the [facility] at [address] [place], [place] [address] *[facility] A [facility] clinic offering health services to low income uninsured adult residents of [facility] following zip codes: [address], [address], [address], [address], and [address] Does not provide pediatric care, mental health services, and obstetric care, or de ntal care. walk-ins: 5:30 to 8:30 pm with follow ups on Sunday pm. Age Restrictions: Between age 18 and 64. Note will be moving soon to the [facility] at [address] [facility]. [address] [place] [address] *[facility] [address] [place] [address] Serving uninsured and underinsured children up to age 21. [facility] *[facility] Medical Appointments 1 week out M-F 9am - 7pm, S 10am - 2pm [address] [place], [place] [address] [facility] ([facility] residents, only) [address] [place] [id number] [address] [facility] *Federally Qualified Health Clinics [facility] ([facility] residents only) Vision care at [place] and [facility] Mobile van unit for health care Mobile van unit for dental care for children only Children's dental care at [place], [place], and [place] [address] [facility] [address] [place], [place] [phone] [address] [facility] [address] [place], [place] [address] [place] [address] [phone] [facility] (school based health center) [address] [place], [place] [address] [facility] Provides free urgent care for uninsured individuals and families in [address] [phone] Tues & Thurs 4:30-6:30 pm, ONLY Weds 4:30-6:30 pm, ONLY [facility] *Federally Qualified Health Clinics [facility] (now call center for [facility]) [place] [address] [place] [address] [facility] [address] [place] [address] [place] [facility] [address] [place] [address] [facility] Call for an appointment [address] [place], [place] [id number] Dental Clinics Dental Service Referral Information for low Income/sponsored/OHP Standard patients. [facility] [address] [place], [place] [phone] [facility] Dental Services [facility] [address] [facility]. 9th [place] [address] Please call [phone] for referral between 7:30 am and 6:30 pm to any of the clinics lis emmanuelle below. Service for OHP-Multi[facility] Dental enrollees and emergency service fore uninsured OPH Plus-Co mprehensive dental services for adults and children. No fees for OHP covered with Multi[facility]. Uninsured - Sliding fee based on family size and income. [facility] Clinic [facility] [address] [place] [address] [place] [address] [phone] For Uninsured [phone] Hours: M-F, 7:30-6:00 pm Hours: M-F 7:30-6:00 pm [facility] [address] [place] [address] [place] [address] [phone] Hours: M-F 7:30-6:00 pm Hours: M-F 7:30-6:00pm Servicfor OHP - Multi[facility] Dental Access Program [phone] Hours: M-F 7:30-6:00pm Provides triage and referral for uninsured, low income adults a and children Refers to the above four clinics for dental care for emergency dental care and limited rout ine care Serve [facility] residents $25 nominal fee required at each visit Additional fees based on family size and income. DENTAL CARE FOR CHILDREN [facility] located at [facility] Provides general dentistry for K-12 registered [facility] student Call for appointment, no walk-ins Must qualify for free and reduced lunch and bring approval sheet to dental appointment Sees children with no dental insurance and no OHP No charge for service-donations encouraged [facility] [address] [place] [address] Hours: 8:30-3:00 during academic school year [facility] Clinic [facility] Dental Clinic Specialized only for children with special health needs and medically fragile children, aircraft structural fitter niofacial defects, and speech problems. Fees are less than regular clinic fees. [address], 7th [place] [address] Hours: M-F 8:30-5:00 to schedule appointments [phone] [facility] Dental Check and Dental Aid Program Annual routine dental checks at schools for low-income children. Contact for annual schedule of dental check dates and school location [address] [place] [address] Contact: Mr. Chen Email: [email or web address] Provides dental services up to age 21 Call for appointments Accepts most insurance - Medicaid DSHS, OHP, discounts for un-insured [address] [place] [address] Hours: M 2-7, Tues-F 9-7, Sat 9-2 DENTAL CARE FOR THE ELDERLY AND MENTALLY DISABLED [facility] Provide free dental care to low income individuals with developmental disabilities, permane nt disabilities, and the elderly Do not provide emergency care Call for appointments, the wait lists up to one year long in some areas. [address] [address] [place] [address] Hours: M-F 8-4:30 Exceptional Needs Dental Services [...] be met in the home setting. [address] [facility] [address] [place] [address] [phone] [facility] Provides dental care for patient 55 and older; wheelchair accessible New patients: $35 basic fee plus required full mouth x-ray for ($50 $85 total) Returning patients: 20-40% less than a regular clinic [address] [place] [address] Hours: M-F 8:30-5 [facility] Provides dental care for low income, uninsured senior age 64 and older Does not provide emergency care or dentures [facility] resident only Call for application packet, after application is processed, referral to a participating de ntist is made 50% reduction for regular dental procedures [phone] [place], [place] [phone] CLEANING, X-RAYS, and GENERAL DENTISTRY [facility] Hygiene Clinic Clinic operates on student schedules; closed Patients seen by appointment only Serves the [facility] Wheelchair access Dental hygiene, teeth cleaning, X-rays, dental exams, fluoride treatments See website for charges [address] [place] [address] [facility] General Dentistry M-F 8-5 pm Free evaluation Discounted services including dentures, oral surgery, and orthodontics Does not accept Medicaid Specialty clinics [address] [place] [phone] [facility] ([facility]) Services by appointment only Emergency services and extraction not provided Provides Hygiene services and X-rays Reduced fees: Children $20, adults $40 (pricing subject to change) Discount for adults 62 years and older [address] [facility] [address] [place] [phone] [facility] Currently accepting emergencies only, New patients are not currently being accepted M-Th 7:30 to 7; F 7:30 - 5; Sat 8-4 [address] [place] [address] DENTAL VANS [employer] Mobile Dental Program Hotline number: [phone] Provides free dental to low-income individuals with urgent needs who do not have access to dental care, insurance, or money to pay for services Appointment required. Must call hotline number and leave name and contact number. If appo intment available they will r/c and indicate location and time of appointment Three vans available for [facility], one for [facility] HEALTH SERVICES [facility] Provides mental health and additions treatment services in four different clinics Provides transitional and permanent housing for people with psychiatric disabilities Crisis Line: [phone] Access, Information, and Referral: [phone] [facility] ([address]) Takes non-sponsored/OHP Take Bus #[place] - it stops in front of clinic Prescirbers available until 10pm Counselors available 18/12 Entrance is at the corner of [address] [place], [place] [address] [place] [address] [address] [facility] [address] [place] [address] [facility] [address] [place] [address] [facility] [address] [place] [address] PRESCRIPTION DRUG PROGRAMS [place] Prescription Drug Program Available to any [place] resident that is uninsured or underinsured for [...] etc. documented in this encounter ED Notes Jacki Sosa, IZZY - 06/13/2009 5:39 AM PSTRN DISCHARGE NOTE: The patient verbalizes understanding of written discharge/home care instructions as a evide nced by Follow-up plan of care reviewed w/ patient, Pt voiced understanding of plan of care, Written dx instructions reviewed w/ patient and Patient advised not to drive when taking na rcotics. The patient was discharged Ambulatory via Private Vehicle with self in no emergent distress. Ugo Quinones M D - 06/13/2009 5:28 AM PST Chief Complaint Patient presents with Mouth Pain No Pcp Per PATIENT 5:28 AM, UGO SANCHEZ MD, Resident Note HPI: Andres Hansen is a 34 y.o. Male presents for bilateral lower tooth pain which has been p resent for several weeks. "I have really bad teeth." Taking tylenol for the pain without e ffect. H/o caries but can't get to his dentist. He denies f/c/n/v. He is able to chew. D enies trauma. No face or neck swelling. PMH, FHX, Meds, allergies, and social history were reviewed. ROS: A complete review of systems was negative except as above PMHx: Past Medical History Diagnosis Date Other general symptoms gamez, chronic back pain MEDS: Current outpatient prescriptions prior to encounter Medication Sig Dispense Refill acetaminophen 325 mg Oral Tablet take 1 tablet (325 mg) by oral route every 4 hours as needed cyclobenzaprine (FLEXERIL) 5 mg Oral Tablet take 1 tablet (5 mg) by oral route 3 times per day oxycodone (immediate release) 5 mg Oral Tablet 1-2 tablets (10 mg) by oral route every 4 hours as needed for pain 20 0 Allergies: Allergies Allergen Reactions Ibuprofen Aspirin Tramadol Hives Soc: reports that he has been using tobacco. He reports that he does not currently drink alcoh ol or use illicit drugs. FAMHx: No family history on file. BP 151/88 | Pulse 97 | Temp 36 C | Resp 20 | Wt 99.791 kg (220 lb) | SpO2 99% 5:28 AM, UGO SANCHEZ MD, Resident Note General: well appearing, NAD, cooperative with history and exam HEENT: Perrla, emoi, mmm, op clear, poor dentition LL 2nd molar and RL 2nd molar with brianne s and ttp. Neck: supple Skin:no rashes, contusion or abrasions Extremities: wwp, salazar Neuro: CNII-XII, SALAZAR, no focal deficits 5:28 AM, UGO SANCHEZ MD, Resident Note MDM: Triaged to the acute care side of the ED and seen by myself and the attending staff bryan cruz Prior history and nursing notes were reviewed. A through history and physical was perf ormed. He has b/l lower dental caries which will need to be repaired by a dentist. Dental block was withheld 2/2 b/l caries. Pain meds withheld 2/[address] He is stable here and d/c'd in good condition. ASSESSMENT: Dental caries PLAN: pcn #40 Oxycodone #12 Discharge Home Follow up with a dentist make an appointment All indications for emergent re-evaluation and medication side effect were discussed prior to discharge. Pt expressed understanding and agreement with above plan. oJacki villareal RN - 0 06/13/2009 5:06 AM PSTPt oral mucosa red, teeth on lower back bilat jaw have decay, painful, teeth to upper rt jaw are painful and red mucosa. Denies difficulty breathing or swallowing . Reports chills last night, and feeling warm, but did not take a temp. Tamara Estrada RN - 06/13/2009 4:49 AM PS TPt c/o right sided face pain with swelling, also with dental pain due to 2 cavities. Pt is worried is it mouth CA because chewed for 2 years. Denies fevers but had chills last night . C/o some pussy drainage from inside of cheek. documented in this encounter Miscellaneous Notes Scan - Carlyle, Faculty - 06/13/2009 5:41 AM PST ED Teaching Notes - Cristina Velasco MD - 06/13/2009 5:39 AM PSTFormatting of this note migh t be different from the original. Department of Emergency Medicine - Faculty Note Note: 34 y.o. male with mouth pain. Some pain in gums in left lower and right upper. No fever, chills Past Medical History Diagnosis Date Other general symptoms gamez, chronic back pain No current hospital medications on file prior [...] hours as needed for pain 20 0 is allergic to ibuprofen, aspirin, and tramadol. History Social History Marital Status: Single Spouse Name: N/A Number of Children: N/A Years of Education: N/A Occupational History Not on file. Social History Main Topics Tobacco Use: Yes Alcohol Use: No Drug Use: No Sexually Active: Not on file Other Topics Concern Not on file Social History Narrative No narrative on file No family history on file. A complete review of systems was taken and is negative except as noted in the above note an d/or the resident note. PE: ED Triage Vitals BP Temp Pulse Resp SpO2 06/13/09 0448 06/13/09 0448 06/13/09 0448 06/13/09 0448 06/13/09 0448 151/88 mmHg 36 C 97 20 99 % Gen: Alert and Oriented x 4 Oropharynx: poor dentition. Gums tender. Assesment and plan: Dental pain Dental infection Dc home on abx Low cost dental Teaching Attestation: I saw and evaluated the patient Myself. I discussed the diagnosis and management of the patient with the Resident. See also the Resident's note from today's visit. I performed and confirmed the reyes portions of the service. The reyes portions of all procedures listed above were directly supervised by myself (if the procedure was <5 minutes, then I was present in its entirety). I agree with the documentation, findings, and plan of care. documented in this encoun ter Plan of Treatment Not on filedocumented as of this encounter Visit Diagnoses + + | Diagnosis | + + | Dental caries Unspecified dental caries | + + documented in this encounter
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
--- OUTSIDE RECORDS SUMMARY | ~2020-01-26 | XMS | Encounter Summary ---
Demographics + + + | Address | [address] | | | [place] [address] | + + + | Home Phone | | + + + | Preferred Language | Unknown | + + + | Marital Status | Single | + + + | Zoroastrian Affiliation | CHR | + + + | Race | White | + + + | Ethnic Group | Not or | + + + Author + + + | Author | [facility] | + + + | Organization | [facility] | + + + | Address | Unknown | + + + | Phone | Unavailable | + + + Support + + +---------+ + | Name | Relationship | Address | Phone | + + +---------+ + | Apoorva Lugo | ECON | Unknown | | + + +---------+ + Care Team Providers + +------+ + | Care Fireworks Inspector Name | Role | Phone | + +------+ + | No Pcp Per Patient | PCP | Unavailable | + +------+ + Reason for Visit + + + | Reason | Comments | + + + | Groin pain | | + + + | Hernia | | + + + Encounter Details +--------+ + + + + | Date | Type | Department | Care Team | Description | +--------+ + + + + | 10/10/ | Emergency | [facility] Emergency | Santosh Torres MD | | | 2010 | | Department [address] | | | | | [address] | [place], | | | | | [facility] | [place] [address] | | | | | [place], [place] | [phone] | | | | | [address] | | | | | | [phone] | | | +--------+ + + + [...] + + + | Blood Pressure | 166/69 | 10/10/2010 3:31 PM | | | | | PDT | | + + + + + | Pulse | 85 | 10/10/2010 3:31 PM | | | | | PDT | | + + + + + | Temperature | 36.7 C (98.1 F) | 10/10/2010 3:31 PM | | | | | PDT | | + + + + + | Respiratory Rate | 18 | 10/10/2010 3:31 PM | | | | | PDT | | + + + + + | Oxygen Saturation | 99% | 10/10/2010 3:31 PM | | | | | PDT [...] documented in this encounter Discharge Instructions Instructions Jr Crump MD - 10/10/2010Thank you for coming to [facility] for your care. Please follow up with the General Surgery Department as we discussed. For an appointment in General Surgery, please call: [phone]. If you have any concerns, such as worsening or change in your symptoms, please return to [facility] emergency department at any time. If you have any further questions whatsoever about your diagnosis, the medicines that you a re supposed to take, or whom you should follow up with, please ask before you leave. Hernia A hernia occurs when an internal organ pushes out through a weak spot in the belly (abdomin al) wall. Hernias most commonly occur in the groin and around the navel. Hernias also can oc cur through by cut (incision) made by the surgeon after an abdominal operation. Hernias ofte n can be pushed back into place (reduced). Most hernias tend to get worse over time. Problem s occur when abdominal contents get stuck in the opening (incarcerated hernia). The blood gamble pply becomes blocked or impaired (incarcerated hernia). Because of these risks, you may requ cirilo surgery to repair the hernia. Causes Heavy lifting. Prolonged coughing. Straining to move your bowels. Hernias can also occur through a cut (incision) by a surgeon after an abdominal operatio n. HOME CARE INSTRUCTIONS Bed rest is not required. You may continue your normal activities. Avoid heavy lifting ( more than 10 pounds) or straining. Cough gently. If you are a smoker it is best to stop. Renuka n the best hernia repair can break down with the continual strain of coughing. Even if you d o not have your hernia repaired, a cough will continue to aggravate the problem. Do not wear anything tight over your hernia. Do not try to keep it in with an outside ba ndage or truss. These can damage abdominal contents if they are trapped within the hernia sa c. Eat a normal diet. Avoid constipation. Straining over long periods of time will increase hernia size and encourage breakdown of repairs. If you cannot do this with diet alone, [place] mucil or other stool softeners may be used. Seek immediate Medical care IF: You have problems (symptoms) of a trapped (incarcerated) hernia: You develop an oral temperature above 102 F (38.9 C), or as your caregiver suggests. You develop increasing abdominal pain. You feel sick to your stomach (nausea) and vomiting. The hernia is stuck outside the abdomen, looks discolored, feels hard, or is tender. You have any changes in your bowel habits or in the hernia that is unusual for you. You have increased pain or swelling around the hernia. You cannot push the hernia back in place by applying gentle pressure while lying down. Make sure you: Understand these instructions. Will watch your condition. Will get help right away if you are not doing well or get worse. Document Released: 05/14/2006 Document Re-Released: 04/26/2009 [employer] Patient Information 2010 [employer]. documented in this encounter Medications at Time [...] documented as of this encounter ED Notes Santosh Torres MD - 10/10/2010 7:46 PM PDTFormatting of this note might be different from axel schafer. Silvio MCCARTHY MD, ED Provider Note: 7:47 PM, Silvio MCCARTHY MD, Faculty Note Groin pain This is a new problem. The current episode started more than 1 week ago. The problem occurs constantly. The problem has been gradually worsening. Pertinent negatives include no chest pain, no abdominal pain, no headaches and no shortness of breath. The symptoms are aggravate d by standing. The symptoms are relieved by lying down. He has tried acetaminophen for the s ymptoms. The treatment provided no relief. Hernia Pertinent negatives include no chest pain, no abdominal pain, no headaches and no shortness of breath. 35 yo man presents with left inguinal pain secondary to hernia. Pt states he has had this h ernia for over a year. He is able to self-reduce the hernia, but the pain and the symptoms h ave worsened over the past few weeks. The hernia is exacerbated by standing and walking. Den ies fever, chills, n/v, diarrhea, cp, sob, ap, dysuria. Review of Systems Respiratory: Negative for shortness of breath. Cardiovascular: Negative for chest pain. Gastrointestinal: Negative for abdominal pain. Neurological: Negative for headaches. ROS: Complete ROS performed and negative except as noted in HPI. Past Medical History Diagnosis Date Other general symptoms gamez, chronic back pain Back pain Current facility-administered medications Medication Dose Route Frequency Provider Last Rate Last Dose oxyCODONE immediate release (aka ROXICODONE) tablet 5 mg 5 mg Oral ONCE Jr argueta MD Current outpatient prescriptions Medication Sig acetaminophen (TYLENOL) 325 mg Oral Tablet Take 325 mg by mouth every four hours as nee ded. acetaminophen 325 mg Oral Tablet take 1 tablet (325 mg) by oral route every 4 hours as needed cyclobenzaprine (FLEXERIL) 5 mg Oral Tablet take 1 tablet (5 mg) by oral route 3 times per day diazepam 5 mg Oral Tablet Take 1 Tab by mouth every eight hours as needed. oxyCODONE, immediate release, 5 mg Oral Tablet Take 1-2 Tabs by mouth every six hours a s needed. Allergies Allergen Reactions Ibuprofen Aspirin Tramadol Hives Social History reports that he has been using tobacco. He reports that he drinks alcohol. He reports th at he does not currently use illicit drugs. FH: Reviewed and found to be non-contributory. rJ Crump MD, Resident Note ED Triage Vitals BP Temp Pulse Resp SpO2 10/10/10 1531 10/10/10 1531 10/10/10 1531 10/10/10 1531 10/10/10 1531 166/69 mmHg 36.7 C 85 18 99 % Physical Exam Constitutional: He is oriented to person, place, and time. He appears well-developed and we ll-nourished. HENT: Head: Normocephalic and atraumatic. Eyes: Extraocular motions are normal. Pupils are equal, round, and reactive to light. Neck: Normal range of motion. Neck supple. Cardiovascular: Normal rate, regular rhythm and normal heart sounds. Pulmonary/Chest: Effort normal and breath sounds normal. No respiratory distress. Abdominal: Soft. Bowel sounds are normal. He exhibits no distension. No tenderness. He has no rebound and no guarding. A hernia is present. Hernia confirmed positive in the left ingui nal area. Genitourinary: Penis normal. No scrotal edema or erythema. No signs of hernia extension into scrotum Musculoskeletal: Normal range of motion. He exhibits no edema. Neurological: He is alert and oriented to person, place, and time. Skin: Skin is warm and dry. Psychiatric: He has a normal mood and affect. His behavior is normal. Judgment and thought content normal. MDM: Pt arrives via private vehicle and triaged to acute side of ED. Exam finds an easily reduc ible Left inguinal hernia that is soft, with no s/sx of incarceration or obstruction. 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 Now having more problems w/ his hernia w/ walking and BM's. Never had difficulty reducing his hernia. No emergent findings necessitating EGS c/s or imaging. Unfortunately pt's insurance status may make elective re pair difficult, but I believe he needs surgery soon. I d/w EGS resident who said they will do what they can in clinic, and he is satisfied w/ this plan. Will give pain control and nu mber for EGS clinic, and reviewed indications to return. 7:46 PM, Silvio MCCARTHY MD, Faculty Note Assessment and Plan: Left inguinal hernia Plan: EGS clinic referral. Return precautions reviewed. Oxycodone Rx. Aga Lawrence RN - 0 10/10/2010 6:58 PM KESHIANo RN assigned. Pt placed in room and d/c home prior to small business consultant Cee Diop RN - 6:55 PM PDTRN DISCHARGE NOTE: The patient verbalizes understanding of written discharge/home care instructions as a evide nced by Follow-up plan of care reviewed w/ patient. The patient was discharged Ambulatory v ia Private Vehicle with self in no emergent distress. Darrian Manning RN - 10/10/2010 3:28 PM PDTPt with lower ABD pain l t groin area H/O same x 1 year. Reducible at home. Pain and size increasing. Aby Mendez - 10/10/2010 3:25 PM PD TC/o left groin pain. Reports a hernia that "I have to hold in when I go to the bathroom." documented in this encount er Miscellaneous Notes Scan - Other, Faculty - 10/11/2010 1:47 PM PDT D Teaching Notes - Santosh Torres MD - 10/10/2010 6:35 PM PDTI saw and evaluated the patient and discussed the diagn osis and management of the patient with the Resident. I performed and confirmed the reyes port ions of the service. See also the Resident's note from today's visit. I agree with the docum entation findings and plan of care. documented in this encoun ter Plan of Treatment Not on filedocumented as of this encounter Visit Diagnoses + + | Diagnosis | + + | Inguinal hernia Inguinal hernia without mention of obstruction or gangrene, | | unilateral or unspecified, (not specified as recurrent) | + + documented in this encounter
--- OUTSIDE RECORDS SUMMARY | ~2020-01-26 | XMS | Encounter Summary ---
Demographics + + + | Address | [address] | | | [place] [address] | + + + | Home Phone | | + + + | Preferred Language | Unknown | + + + | Marital Status | Single | + + + | Sabianism Affiliation | CHR | + + + | Race | White | + + + | Ethnic Group | Not or | + + + Author + + + | Author | [facility] | + + + | Organization | [facility] | + + + | Address | Unknown | + + + | Phone | Unavailable | + + + Support + + +---------+ + | Name | Relationship | Address | Phone | + + +---------+ + | Apoorva Lugo | ECON | Unknown | | + + +---------+ + Care Team Providers + +------+ + | Care Mirror Polisher Name | Role | Phone | + [...] | +--------+ + + + + | 06/19/ | Emergency | [facility] Emergency | Michelle Rousseau, | | | 2009 | | Department [address] | [address] | | | | | [address] | [place], [place] | | | | | [facility] | [address] | | | | | [place], [place] | [phone] | | | | | [address] | | | | | | [phone] | | | +--------+ + + + [...] + + + | Blood Pressure | 175/89 | 06/19/2009 12:29 PM | | | | | PST | | + + + + + | Pulse | 101 | 06/19/2009 12:29 PM | | | | | PST | | + + + + + | Temperature | 36.6 C (97.9 F) | 06/19/2009 12:29 PM | | | | | PST | | + + + + + | Respiratory Rate | 18 | 06/19/2009 12:29 PM | | | | | PST | | + + + + + | Oxygen Saturation | 98% | 06/19/2009 12:29 PM | | | | | PST | | + + + + + | Inhaled Oxygen | - | - | | | Concentration | | | | + + + + + | Weight | 99.8 kg (220 lb) | 06/19/2009 12:29 PM | | | | | PST | | + + + + + | Height | - | - | | + + + + + | Body Mass Index | - | - | | + + + + + documented in this encounter Discharge Instructions Instructions Michelle Coppola ACNP - 06/19/2009Dental Pain (Tooth Ache) You have been seen [...] return to this location. ExitCare Patient Information 2006 [employer]. documented in this encounter ED Notes AbdonMichelle wu ACNP - 06/19/2009 1:12 PM PSTFormatting of this note might be different fro m the original. HPI Comments: 34 yo male with hx of dental pain, this is his third visit to out Ed for the Same, seen 06/13, 2009 Now today. States he has called all the low cost clincs, several won't see him because he l lub[facility] in [facility], has an appointment this coming Sunday, the dentist wants him to be on antiobiotics Prior to evaluation. He is currently taking pcn. States warm water and oxycodone are the only things that relieve his pain. Current meds: pcn Out of oxycodone Past Medical History: OTHER GENERAL SYMPTOMS Comment:gamez, chronic back pain Social Not employed No insurance No pcpc Has children who are covered under his ';s insurance but he is not smoker. Dental Pain Review of Systems Constitutional: Negative. HENT: Negative. Positive for dental problem. Eyes: Negative. Respiratory: Negative. Cardiovascular: Negative. Gastrointestinal: Negative. Genitourinary: Negative. Musculoskeletal: Negative. Skin: Negative. Neurological: Negative. Endo/Heme/Allergies: Negative. Psychiatric/Behavioral: Negative. Past Medical History Diagnosis Date Other general [...] hours as needed for pain 20 0 OXYCODONE, IMMEDIATE RELEASE, 5 mg Oral Tablet Take 1-2 Tabs by mouth every six hours a s needed. 40 Tab 0 oxycodone, immediate release, 5 mg Oral [...] he does not currently use illicit drugs. ED Triage Vitals BP Temp Pulse Resp SpO2 06/19/09 1229 06/19/09 1229 06/19/09 1229 06/19/09 1229 06/19/09 1229 175/89 mmHg 36.6 C 101 18 98 % Physical Exam Constitutional: He is oriented. He appears well-developed and well-nourished. HENT: Head: Normocephalic and atraumatic. Right Ear: External ear normal. Left Ear: External ear normal. Mouth/Throat: Oropharynx is clear and moist. Intraoral complaints of pain over teeth number 18,19, 20 No swelling or erythema no focal areas of fluctuance. Floor of mouth is normal Normal tongue movement. Generally poor dentition Eyes: Extraocular motions are normal. Pupils are equal, round, and reactive to light. Neck: Normal range of motion. Neck supple. No JVD present. No tracheal deviation present. N o thyromegaly present. Pulmonary/Chest: Effort normal. No respiratory distress. He has wheezes. He has no rales. H e exhibits no tenderness. Occ. wheeze Abdominal: Soft. Bowel sounds are normal. He exhibits no distension. No tenderness. He has no rebound. Musculoskeletal: Normal range of motion. He exhibits no edema and no tenderness. Lymphadenopathy: He has cervical adenopathy. Neurological: He is alert and oriented. He has normal reflexes. Skin: Skin is warm and dry. Clinical Course: Triage tominor care seen in observation room number 36, nurses notes are reviewed. MDM: No history of trauma, fevers, continued pain with no destini evidence of abscess, has mild ly mphadenopthy in the anterior chain, with 2 palpable nodes only, no fevers. Plan: Refer to dentist Oxycodone number 30 (prescribed 40 at last visit) pcn for 6 days to get him to his next appointment. Michelle WANGP, WASH BOX OPERATOR Evan Raya RN - 06/19/2009 1:05 PM PSTRN DISCHARGE NOTE: The patient verbalizes understanding of written discharge/home care instructions as a evide nced by Follow-up plan of care reviewed w/ patient, Pt voiced understanding of plan of care and Written dx instructions reviewed w/ patient. The patient was discharged Ambulatory via Private Vehicle with self in no emergent distress. Evan Ryaa RN - 06/19/2009 12:42 PM PSTPatient has bee n seen here twice this month for the same issue, continued dental pain, patient has very bad teeth and states that he called all the referrals and can't find anyone to take him, does h ave an appointment with his dentist but has to come up $350.00 before he will do any work an d that he needs to be on AB for 10 days prior to treating him but wouldn't prescribe him any AB. Patient here requesting pain medications and AB. ara Laura - 06/19/2009 12:32 PM PSTPt states has co mpleted his abx as well. Mara Laura - 06/19/2009 12:30 PM PSTPt c/o ongoing dental pain in four different area s- increased over the last ten days or so. Subjective fevers. Pt was seen here for same sx , given Rx for Oxyocodone- states this makes the pain tolerable. Does have dental appt on , but took last Oxycodone this AM. A&Ox4, skin P/W/D. Pt states very painful.Electron silvery signed by Mara Laura at 06/19/2009 12:32 PM PSTdocumented in this encounter Miscellaneous Notes ED Teaching Notes - Michelle Coppola ACNP - 06/19/2009 1:11 PM PSTI saw this patient primari ly, teaching note not needed D Abdon GREWAL, WASH BOX OPERATOR can - Other, Faculty - 06/19/2009 1:06 PM PST documented in this encounter Plan of Treatment Not on filedocumented as of this encounter Visit Diagnoses + + | Diagnosis | + + | Dental abscess Periapical abscess without sinus | + + documented in this encounter"
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
--- OUTSIDE RECORDS SUMMARY | ~2020-01-26 | XMS | Encounter Summary ---
Demographics + + + | Address | [address] | | | [place] [address] | + + + | Home Phone | | + + + | Preferred Language | Unknown | + + + | Marital Status | Single | + + + | Restorationism Affiliation | CHR | + + + | Race | White | + + + | Ethnic Group | Not or | + + + Author + + + | Author | [facility] | + + + | Organization | [facility] | + + + | Address | Unknown | + + + | Phone | Unavailable | + + + Support + + +---------+ + | Name | Relationship | Address | Phone | + + +---------+ + | Apoorva Lugo | ECON | Unknown | | + + +---------+ + Care Team Providers + +------+ + | 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 | Phone | + +------+ + | No Pcp Per Patient | PCP | Unavailable | + +------+ + Reason for Visit + + + | Reason | Comments | + + + | Low back pain | | + + + Encounter Details +--------+ + + + + | Date | Type | Department | Care Team | Description | +--------+ + + + + | 08/13/ | Emergency | [facility] Emergency | Michelle Rousseau, | | | 2009 | | Department [address] | | | | | [address] | [place], [place] | | | | | [facility] | [address] | | | | | [place], [place] | [phone] | | | | | [address] | | | | | | [phone] | | | +--------+ + + + [...] + + + | Blood Pressure | 151/80 | 08/13/2009 11:50 AM | | | | | PDT | | + + + + + | Pulse | 109 | 08/13/2009 11:50 AM | | | | | PDT | | + + + + + | Temperature | 36.6 C (97.9 F) | 08/13/2009 11:50 AM | | | | | PDT | | + + + + + | Respiratory Rate | 16 | 08/13/2009 11:50 AM | | | | | PDT | | + + + + + | Oxygen Saturation | 97% | 08/13/2009 11:50 AM | | | | | PDT [...] Discharge Instructions Instructions Michelle Coppola ACNP - 08/13/2009 Back Pain & Injury Your back pain [...] ssful on the back to sit or lens fabricating machine tender one place. Do not sit, drive or lens fabricating machine tender one place for more than 30 minutes [...] days after your inju ry or as instructed,. After that ice or heat may be alternated to reduce pain and spasm. Ba ck exercises and gentle massage may be of some benefit.You should be examined again if your back pain is not better in one week. Seek immediate medical care if: You have pain that radiates from your back into your legs You develop new bowel or bladder control problems You have unusual weakness or numbness in your arms or legs You develop nausea or vomiting You develop abdominal pain You feel faint Document Released: 05/14/2006 Document Re-Released: 03/10/2008 ExitCare Patient Information 2009 Radionomy. Low Cost Provider Referral Information by [facility] *[facility] Wait time to be seen can be up to 30 days New patients w/o insurance are seen the first of the month, patients to call in @8am [address] [place], [place] [id number] *[facility] Low income uninsured individuals and families basis health care services for acute health i ssues managing care for diabetes, asthma, and hypertension, specialist referrals women's exa ms; appts only; Sunday and evening, only 4-8 PM & Sunday 6p-8p. (Note: Planning to increase hours possibly ) [address] [place], [place] [address] Sunita Haira De [place] Nicole [address] [place], [place] [address] New Patients: [phone] Sun-Sun 8:30 am to 5pm [facility] Eleven primary care clinics in the [facility] area Services are available to uninsured or underinsured persons Costs of services are based on sliding scale Must fill out financial Assistance Application Contact [phone] ([place]) [phone] ([place]) or [phone] to obtain application M-F 8-6:45 *[facility] Financial screening required before an appointment will be made. Ana Maria0 Andrés [facility] [address] Low Cost Provider Referral Information by [facility] *[facility] Qualified Health Clinics *[facility] Two decedents of federal recognized robinson, required. New patient seen within one week. [address] [place], [place] [address] *[facility] [address] [place], [place] [address] *Outside In Emphasis of patients under age 30 but will serve anyone of low or no income and the uninsur ed. [address] [place], [place] [address] *[facility] Must have low income and no insurance. No walk-in services. [facility] residents only. [address], [place] [address] *[facility] Clinic for uninsured people only Does not see patients with [place] health Plan or other insurance coverage Dermatology and Podiatry available twice/month [address] [place], [place] [address] *[facility] Services all ages. Clinics held on Sunday and Sunday evenings. Doors open at 5:30 pm. Patients are accepted until 8 pm, or until clinic fills. No appointment required. [address] [place], [place] [address] (located next to the [facility]) *[facility] Services for all ages. Clinics held on evenings. Call for an appointment for the [facility]. [phone]. Doors open at 6:30 p.m. Appointment required. Located inside the [facility] at [address] [place], [place] [address] *[facility] A neighborhood clinic offering health services to low income uninsured adult residents of he following zip codes: [address], [address], [address], [address], and [address] Does not provide pediatric care, mental health services, and obstetric care, or de ntal care. walk-ins: 5:30 to 8:30 pm with follow ups on Sunday pm. Age Restrictions: Between age 18 and 64. Note will be moving soon to the [facility] at [address] [facility] [address]. [address] [place] [address] *[facility] [address] [place] [address] Serving uninsured and underinsured children up to age 21. [facility] *[facility] Medical Appointments 1 week out M-F 9am - 7pm, S 10am - 2pm [address] [place], [place] [address] [facility] Primary Care Center ([facility] residents, only) [address] [place], [place] [address] [address] [facility] *[facility] ([facility] residents only) Vision care at [facility] Mobile van unit for health care Mobile van unit for dental care for children only Children's dental care at [place] [place], and [place] [address] [facility] [address] [place], [place] [phone] [place], [place] [address] [place], [place] [address] [phone] [facility] (school based health center) [address] [place], [place] [address] [facility] Provides free urgent care for uninsured individuals and families in [address] [address] [place], [place] [phone] Tues & Thurs 4:30-6:30 pm, ONLY Weds 4:30-6:30 pm, ONLY [facility] *Federally Qualified Health Clinics [facility] (now call center for [facility]) [place] [address] [place] [address] [facility] [address] [place] [address] [place] [place] [facility] [address] [place] [address] [facility] Call for an appointment [address] [place] [address] Dental Clinics Dental Service Referral Information for low Income/sponsored/[place]P Standard patients. [facility] [address] [place], [place] [phone] [facility] Dental Services [facility] [address] [facility] [place], [place] [address] Please call [phone] for referral between 7:30 am and 6:30 pm to any of the clinics lis emmanuelle below. Service for [place]HP-[facility] Dental enrollees and emergency service fore uninsured [facility] Plus-Co mprehensive dental services for adults and children. No fees for OHP covered with [facility]. Uninsured - Sliding fee based on family size and income. [facility] [address] [place] [address] [place], [place] [phone] For Uninsured [phone] Hours: M-F, 7:30-6:00 pm Hours: M-F 7:30-6:00 pm [facility] [address] [place] [address] [place] [address] Hours: M-F 7:30-6:00 pm Hours: M-F 7:30-6:00pm Servicfor OHP - [facility] Dental Access Program [phone] Hours: M-F 7:30-6:00pm Provides triage and referral for uninsured, low income adults a and children Refers to the above four clinics for dental care for emergency dental care and limited rout ine care Serve [facility] $25 nominal fee required at each visit Additional fees based on family size and income. DENTAL CARE FOR CHILDREN [facility] located at [facility] Provides general dentistry for K-12 registered [facility] student Call for appointment, no walk-ins Must qualify for free and reduced lunch and bring approval sheet to dental appointment Sees children with no dental insurance and no OHP No charge for service-donations encouraged [facility] [address] [place] [address] Hours: 8:30-3:00 during academic school year [facility] Clinic [facility] Dental Clinic Specialized only for children with special health needs and medically fragile children, scrap 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 Fees are less than regular clinic fees. [address] [place] [address] Hours: M-F 8:30-5:00 to schedule appointments [phone] [facility] Dental Check and Dental Aid Program Annual routine dental checks at schools for low-income children. Contact for annual schedule of dental check dates and school location [address] [place] [address] Contact: Mr. Chen Email: Bj Dumont Provides dental services up to age 21 Call for appointments Accepts most insurance - Medicaid DSHS, OHP, discounts for un-insured [address], [place] [address] Hours: M 2-7, Tues-F 9-7, Sat 9-2 DENTAL CARE FOR THE ELDERLY AND MENTALLY DISABLED [facility] Provide free dental care to low income individuals with developmental disabilities, permane nt disabilities, and the elderly Do not provide emergency care Call for appointments, the wait lists up to one year long in some areas. [address] [address] [place] [phone] Hours: M-F 8-4:30 [facility] Provides services to OHP patients who are non-ambulatory or who have a severe developmental disability or a mental impairment. Services are provided in various settings (nursing homes, group homes, private homes) for t hosyoana who are unable to go to a dental clinic for care. Will provide care for hospital based dental surgery under general anesthesia if patient's n eeds cannot be met in the home setting. [address] [facility] [address] [place] [address] [facility] Provides dental care for patient 55 and older; wheelchair accessible New patients: $35 basic fee plus required full mouth x-ray for ($50 $85 total) Returning patients: 20-40% less than a regular clinic [address] [place] [address] Hours: M-F 8:30-5 [facility] Provides dental care for low income, uninsured senior age 64 and older Does not provide emergency care or dentures [facility] resident only Call for application packet, after application is processed, referral to a participating de ntist is made 50% reduction for regular dental procedures [address] [place] [phone] CLEANING, X-RAYS, and GENERAL DENTISTRY [facility] Dental Hygiene Clinic Clinic operates on student schedules; closed olivarez Patients seen by appointment only [facility]es [facility] Wheel[facility] access Dental hygiene, teeth cleaning, X-rays, dental exams, fluoride treatments See website for charges [address] [facility] [place] [address] [facility] General Dentistry M-F 8-5 pm Free evaluation Discounted services including dentures, oral surgery, and orthodontics Does not accept Medicaid Specialty clinics [address] [place] [address] [facility] ([facility]) Services by appointment only Emergency services and extraction not provided Provides Hygiene services and X-rays Reduced fees: Children $20, adults $40 (pricing subject to change) Discount for adults 62 years and older [address] [place] [address] [facility] Currently accepting emergencies only, New patients are not currently being accepted M-Th 7:30 to 7; F 7:30 - 5; Sat 8-4 [address] [place] [phone] DENTAL VANS [employer] Mobile Dental Program Hotline number: [phone] Provides free dental to low-income individuals with urgent needs who do not have access to dental care, insurance, or money to pay for services Appointment required. Must call hotline number and leave name and contact number. If appo intment available they will r/c and indicate location and time of appointment Three vans available for [facility], one for [place] MENTAL HEALTH SERVICES [facility] Provides mental health and additions treatment services in four different clinics Provides transitional and permanent housing for people with psychiatric disabilities Crisis Line: [phone] Access, Information, and Referral: [phone] [facility] ([address] [place] [address] Clinic) Takes non-sponsored/[place]P Take Bus #4 from downtown - it stops in front of clinic Prescirbers available until 10pm Counselors available 18/12 Entrance is at the corner of [facility] and [facility] [address] [place] [address] [facility] [address] [place] [address] [facility] [address] [place] [address] [facility] [address] [place] [address] PRESCRIPTION DRUG PROGRAMS [place] Prescription Drug Program Available to any [place] resident that is uninsured or underinsured for [...] at participating providers such as [employer], [employer], [employer], etc. This is the last narcotic prescription we can provide for you back pain Consider calling the [facility], they may be able to fit you in documented in this encounter ED Notes Marilu Faith RN - 08/13/2009 12:35 PM PDTRN DISCHARGE NOTE: The patient verbalizes understanding of written discharge/home care instructions as a evide nced by Follow-up plan of care reviewed w/ patient, Pt voiced understanding of plan of care and Written dx instructions reviewed w/ patient. The patient was discharged Ambulatory via Private Vehicle with self in no emergent distress. ichelle Coppola ACNP - 08/13/2009 12:12 PM PDTFormatting of thi s note might be different from the original. HPI Comments: 34 yo male, returns for continued back pain, seen 3 days ago by myself, now s tates he carried 4 children up the stairs and has left low back pain L1 to L4. ROS: No bowel or bladder abnormality Low back pain Review of Systems Constitutional: Negative. HENT: Negative. Eyes: Negative. Respiratory: Negative. Cardiovascular: Negative. Gastrointestinal: [...] oral route every 4 hours as needed chlorhexidine 0.12 % Mucous Membrane Mouthwash Take 15 mL by mouth every six hours. 1 Each 0 clindamycin 300 mg Oral Capsule Take 1 Cap by mouth every six hours. 28 Cap 0 cyclobenzaprine (FLEXERIL) 5 mg Oral Tablet take 1 tablet (5 mg) by oral route 3 times per day oxycodone (immediate release) 5 mg Oral Tablet 1-2 tablets (10 mg) by oral route every 4 hours as needed for pain 20 0 oxycodone, immediate release, 5 mg Oral Tablet Take 1 Tab by mouth every six hours as n eeded. 24 Tab 0 oxycodone, immediate release, 5 mg Oral Tablet Take 2 Tabs by mouth every six hours as needed for severe pain. 20 Tab 0 oxycodone, immediate release, 5 mg Oral Tablet Take 1 Tab by mouth every six hours as n eeded. 30 Tab 0 OXYCODONE, IMMEDIATE RELEASE, 5 mg Oral Tablet Take 1-2 Tabs by mouth every six hours a s needed. 40 Tab 0 oxycodone, immediate release, 5 mg Oral Tablet Take 1 Tab by mouth every three hours as needed. 12 Tab 0 penicillin v potassium 250 mg Oral Tablet Take 1 Tab by mouth every six hours. 40 Tab 0 penicillin v potassium 500 mg Oral Tablet Take 1 Tab by mouth every six hours. 24 Tab 0 Allergies Allergen Reactions Ibuprofen Aspirin Tramadol Hives Social History reports that he has been using tobacco. He reports that he drinks alcohol. He reports th at he does not currently use illicit drugs. ED Triage Vitals BP Temp Pulse Resp SpO2 08/13/09 1150 08/13/09 1150 08/13/09 1150 08/13/09 1150 08/13/09 1150 151/80 mmHg 36.6 C 109 16 97 % Physical Exam Constitutional: He is oriented. He appears well-developed and well-nourished. He appears no t diaphoretic. No distress. HENT: Head: Normocephalic and atraumatic. Right Ear: External ear normal. Left Ear: External ear normal. Mouth/Throat: Oropharynx is clear and moist. Eyes: Conjunctivae and extraocular motions are normal. Pupils are equal, round, and reactiv e to light. Left eye exhibits no discharge. No scleral icterus. Neck: Normal range of motion. No JVD present. No tracheal deviation present. No thyromegaly present. Cardiovascular: Normal rate, normal heart sounds and intact distal pulses. No murmur heard. Pulmonary/Chest: Effort normal and breath sounds normal. No stridor. No respiratory distres s. He has no wheezes. He has no rales. He exhibits no tenderness. Abdominal: Soft. Bowel sounds are normal. Musculoskeletal: Normal range of motion. He exhibits tenderness. He exhibits no edema. No pain to palpatin over the cervical spine, With paraspinous pain L1 to L4 With a sciatic component. Complaining of muscle spasm in his back, Continued pain. Able to sit bolt upright from a supine position w/ no assistance, able to ambulate, with up right posture Lymphadenopathy: He has no cervical adenopathy. Neurological: He is alert and oriented. He has normal reflexes. Skin: Skin is warm and dry. No rash noted. He is not diaphoretic. No erythema. No pallor. Clinical Course: Triage to minor care seen in observation room number 35 MDM: No indication for imaging, no bowel or bladder dysfunction no history of cancer, Physical exam not congruent with pain description A; back pain, stable Plan: Oxycodone 20 only Valium 5 mg small quantity No refills of either for back pain. Needs to establish pcp, list provided again Michelle GREWAL, MECHANICAL SYSTEMS DESIGN ENGINEER Nely Arias - 11:51 AM PDTPt reports low back pain s/p falling off a 4 rodriguez last week. Pt seen in ed last week diagnosed with sciatica. Pt reports the pain has increased, pt also states pain is radiating down both legs, denies n/t, denies bowel/bladder complications. Pt reports the oxycodone he was prescribed is not helping with the pain. Pt able to ambulate without a ssistance in triage. docum ented in this encounter Miscellaneous Notes Scan - Other, Faculty - 08/13/2009 12:36 PM PDT Scan - Other, Faculty - 08/13/2009 12:36 PM PDT ED Teaching Notes - Michelle Coppola ACNP - 08/13/2009 12:12 PM PDTI saw this patient prima rily, teaching note not needed Babita GREWAL, DAREN D Teaching Notes - Michelle Carmona ACNP - 08/13/2009 12:07 PM PDTI saw this patient primarily, teaching note not needed Babita GREWAL, MECHANICAL SYSTEMS DESIGN ENGINEER documented in this en counter Plan of Treatment Not on filedocumented as of this encounter Visit Diagnoses + + | Diagnosis | + + | Back pain Backache, unspecified | + + documented in this encounter"
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
--- OUTSIDE RECORDS SUMMARY | ~2020-01-26 | XMS | Encounter Summary ---
Demographics + + + | Address | [address] | | | [place] [address] | + + + | Home Phone | | + + + | Preferred Language | Unknown | + + + | Marital Status | Single | + + + | Evangelical Affiliation | CHR | + + + | Race | White | + + + | Ethnic Group | Not or | + + + Author + + + | Author | [facility] | + + + | Organization | [facility] | + + + | Address | Unknown | + + + | Phone | Unavailable | + + + Support + + +---------+ + | Name | Relationship | Address | Phone | + + +---------+ + | Apoorva Lugo | ECON | Unknown | | + + +---------+ + Care Team Providers + +------+ + | Care Copy Chaser Name | Role | Phone | + +------+ + | No Pcp Per Patient | PCP | Unavailable | + +------+ + Encounter Details +--------+ + + + + | Date | Type | Department | Care Team | Description | +--------+ + + + + | 04/25/ | Document-Sc | Health Information | Unknown . | | | 2015 | anned | Services [phone] | | | | | | [address] | | | | | | Mailcode: [id number] | | | | | | [facility] | | | | | | [place], [place] | | | | | | [address] | | | | | | [phone] | | | +--------+ + + + [...] + + documented as of this encounter Plan of Treatment Not on filedocumented as of this encounter Visit Diagnoses Not on filedocumented in this encounter"
--- OUTSIDE RECORDS SUMMARY | ~2020-01-26 | XMS | Encounter Summary ---
Demographics + + + | Address | [address] | | | [place] [address] | + + + | Home Phone | | + + + | Preferred Language | Unknown | + + + | Marital Status | Single | + + + | Islam Affiliation | CHR | + + + | Race | White | + + + | Ethnic Group | Not or | + + + Author + + + | Author | [facility] | + + + | Organization | [facility] | + + + | Address | Unknown | + + + | Phone | Unavailable | + + + Support + + +---------+ + | Name | Relationship | Address | Phone | + + +---------+ + | Apoorva Lugo | ECON | Unknown | | + + +---------+ + Care Team Providers + +------+ + | Care Manufacturing Engineer Name | Role | Phone | + +------+ + | No Pcp Per Patient | PCP | Unavailable | + +------+ + Reason for Visit + + + | Reason | Comments | + + + | Consultation | leukoplakia of the oral mucosa | + + + Consultation (Urgent) +--------+--------+ + + + + | Status | Reason | Specialty | Diagnoses / | Referred By | Referred To | | | | | Procedures | Contact | Contact | +--------+--------+ + + + + | Closed | | Oral & | Diagnoses | Tone, | Kellie, | | | | Maxillofacial | Leukoplakia | DAREN Fernandez | Eddie Rivera, | | | | Surgery | of oral | CORY | DMD [address] | | | | | mucosa, | PRIMARY CARE | [address] | | | | | including | [address] | | | | | tongue | [address] | [place], [place] | | | | | Leukoplakia | 9 | [address] | | | | | of oral | CORY, | Phone: | | | | | mucosa, | [place] [address] | [phone] | | | | | including | Phone: | Fax: | | | | | tongue | [phone] | [phone] | | | | | Procedures | Fax: | | | | | | [place] NEW | [phone] | | | | | | PATIENT | | | | | | | LEVEL V | | | +--------+--------+ + + + + Encounter Details +--------+---------+ + + + | Date | Type | Department | Care Team | Description | +--------+---------+ + + + | 02/23/ | Office | [facility] | Eddie Hopkins | Pain, dental | | 2016 | Visit | [facility] [address] | V, DMD [address] | (Primary Dx) | | | | [address] | [address] | | | | | [facility] | [place], [place] | | | | | [address] | [address] | | | | | [place], [place] | [phone] | | | | | [address] | | | | | | [phone] | | | +--------+---------+ + + + [...] + + + | Blood Pressure | 164/104 | 02/24/2016 8:53 AM | | | | | PDT | | + + + + + | Pulse | 65 | 02/24/2016 8:53 AM | | | | | PDT | | + + + + + | Temperature | - | - | | + + + + + | Respiratory Rate | - | - | | + + + + + | Oxygen Saturation | - | - | | + + + + + | Inhaled Oxygen | - | - | | | Concentration | | | | + + + + + | Weight | 86.2 kg (190 lb) | 02/24/2016 8:53 AM | | | | | PDT | | + + + + + | Height | 195.6 cm (6' 5") | 02/24/2016 8:53 AM | | | | | PDT | | + + + + + | Body Mass Index | 22.53 | 02/24/2016 8:53 AM | | | | | PDT | | + + + + + documented in this encounter Progress Notes Lynne Rojo DMD - 02/27/2016 11:20 AM PDTFormatting of this note might be differe nt from the original. [facility] Consult Author: Lynne Rojo DMD Attending: Eddie Hopkins DMD Referring: Laine Wayne [facility] Date: 02/24/2016 Request: [facility] Dental Service Evaluation CC/ Goals: Patient is concerned about painful growths on upper arch. Pain: 10/04 HPI: Andres Hansen is a 40 year old male with chronic back pain who presents to [facility] for evaluation. PMH: Past Medical History Diagnosis Date Other general symptoms(780.99) gamez, chronic back pain Back pain PSH: History reviewed. No pertinent past surgical history. MEDS: acetaminophen (TYLENOL) 325 mg Oral Tablet, Take 325 mg by mouth every four hours as needed . HYDROcodone-acetaminophen 5-325 mg oral tablet, Take 2 tablets by mouth three times daily. ipratropium-albuterol 20-100 mcg/actuation inhalation mist, Inhale 1 puff. metoprolol tartrate 50 mg oral tablet, Take 50 mg by mouth two times daily. ALL: Allergies Allergen Reactions Sulfa (Sulfonamide Antibiotics) Angioedema Aspirin Ibuprofen Tramadol Hives SOC/HABITS: Social History Social History Marital Status: Single Spouse Name: N/A Number of Children: N/A Years of Education: N/A Occupational History Not on file. Social History Main Topics Smoking status: Current Every Day Smoker Smokeless tobacco: Former User Comment: 05/29 PPD Alcohol Use: 0.0 oz/week 0 Standard drinks or equivalent per week Comment: rarely Drug Use: No Sexual Activity: Not on file Other Topics Concern Not on file Social History Narrative EXAM: BP 164/104 | Pulse 65 | Ht 1.956 m (6' 5") | Wt 86.183 kg (190 lb) | BMI 22.53 kg/(m^2) General: Pt is awake, alert, and oriented HEENT: Neck: soft, supple, no adenopathy Extraoral: No cutaneous lesions or masses, PERRL, EOMI, ears appear normal, Nose straight, nares patent TMJ: No Pop/Click on opening or close, ROM: HANSA = 40 mm, no trismus Oropharynx: PP clear, no oral mucosal lesions, tongue freely mobile, FOM not elevated. Dentoalveolar: mixed dentition with teeth #1,3,5,13,14,15,16,17,18,29-32 missing, maxillar y paola on UR and UL arch both IMAGING: Radiographic Imaging Type(s): Pano and CBCT Radiographic Findings: Confirms findings in dentoalveolar exam, opacity in maxillary right sinus Assessment: Andres Hansen is a 40 year old male, ASA: 3. Andres reports that he is nervous about renaldo wths he has noticed on the upper right and upper left arch. He chewed tobacco for about 15 y ears and says he use to store his tobacco in these areas. He reports more pain when he lays down, also that the teeth on the upper right were infected and took a few round of antibioti cs to clear infection after the teeth were extracted. Upon evaluation of the area, it looks paola have developed in upper right and upper left on the buccal alveolar ridge, explained to patient that these are a variation of normal. Discussed that the pain he is explaining is n ot consistent with paola and that there may be another source of the pain. Pano taken today s hows a radiopaque mass in the right maxillary sinus. Asked Andres is he had experienced any falls that could have disturbed that area. Andres states that with his line of work he has f la nena but nothing recent. Recommendations/Plan: - refer back to primary provider and discuss options of evaluation by ENT for possible turb inate disruption or neurologist for trigeminal neuralga Prescriptions today: Requested Prescriptions No prescriptions requested or ordered in this encounter Next Encounter: none that this time Lynne Rojo DMD Resident [facility] Dental Service IAHagerty, Guanako Rivera DMD - 02/24/2016 9:00 AM PDTI saw and evaluated the patient. I agree with the finding s and the plan of care as documented in the resident s note. Eddie Hopkins DMD [facility] [address] [address] [phone] signed by Eddie Rivera DMD at 06/23/2016 11:00 AM PSTdocum ented in this encounter Plan of Treatment Not on filedocumented as of this encounter Visit Diagnoses + + | Diagnosis | + + | Pain, dental - Primary Unspecified disorder of the teeth and supporting structures | + + documented in this encounter
--- OUTSIDE RECORDS SUMMARY | ~2020-01-26 | XMS | Clinical Summary ---
Demographics + + + | Address | [address] | | | [place] [address] | + + + | Home Phone | | + + + | Preferred Language | Unknown | + + + | Marital Status | Single | + + + | Mormon Affiliation | CHR | + + + | Race | White | + + + | Ethnic Group | Not or | + + + Author + + + | Author | NON REVENUE LOCATIONS | + + + | Organization | NON REVENUE LOCATIONS | + + + | Address | Unknown | + + + | Phone | Unavailable | + + + Support + + +---------+ + | Name | Relationship | Address | Phone | + + +---------+ + | Apoorva Lugo | ECON | Unknown | | + + +---------+ + Care Team Providers + +------+ + | Care Turn Down Man Name | Role | Phone | + +------+ + | No Pcp Per Patient | PCP | Unavailable | + +------+ + Source Comments VIVIEN is fully live on both [facility] and [facility] Allergies + + + + + + | Active Allergy | Reactions | Severity | Noted | Comments | | | | | Date | | + + + + + + | Aspirin | | | 01/26/20 | | | | | | 08 | | + + + + + + | Ibuprofen | | | 01/26/20 | | | | | | 08 | | + + + + + + | Sulfa (Sulfonamide | Angioedema | High | 10/14/19 | | | Antibiotics) | | | 11 | | + + + + + + | Tramadol | Hives | | 06/13/19 | | | | | | 10 | | + + + + + + Medications + + + +---------+------+------+-------+ | Medication | Sig | Dispensed | Refills | Star | End | Statu | | | | | | t | Date | s | | | | | | Date | | | + + + +---------+------+------+-------+ | acetaminophen | Take 325 mg by mouth | | 0 | | | Activ | | (TYLENOL) 325 mg | every four hours as | | | | | e | | Oral Tablet | needed. | | | | | | + + + +---------+------+------+-------+ | metoprolol | Take 50 mg by mouth | | 0 | | | Activ | | tartrate 50 mg oral | two times daily. | | | | | e | | tablet | | | | | | | + + + +---------+------+------+-------+ | | Take 2 tablets by | | 0 | | | Activ | | HYDROcodone-acetamin | mouth three times | | | | | e | | ophen 5-325 mg oral | daily. | | | | | | | tablet | | | | | | | + + + +---------+------+------+-------+ | | Inhale 1 puff. | | 0 | | | Activ | | ipratropium-albutero | | | | | | e | | l 20-100 | | | | | | | | mcg/actuation | | | | | | | | inhalation mist | | | | | | | + + + +---------+------+------+-------+ Active Problems + + + | Problem | Noted Date | + + + | Inguinal hernia | 10/21/2010 | + + + Social History + +-------+ [...] on file | | + + + Last Filed Vital Signs + + + [...] | | + + + + + Plan of Treatment + + +-------+ + | Health Maintenance | Due Date | Last | Comments | | | | Done | | + + +-------+ + | Pneumococcal | | | | | vaccination (1 of 1 | 1 | | | | - PPSV23) | | | | + + +-------+ + | Influenza (Flu) | | | | | vaccination (#1) | 9 | | | + + +-------+ + Results Not on filefrom Last 3 Months Insurance + +--------+ +--------+-------+---------+--------+ | Payer | Benefi | Subscriber | Effect | Phone | Address | Type | | | t Plan | ID | eliezer | | | | | | / | | Dates | | | | | | Group | | | | | | + +--------+ +--------+-------+---------+--------+ | OUTSIDE SALES REPRESENTATIVE INSURANCE MEDICAID | OUTSIDE SALES REPRESENTATIVE INSURANCE | [id number] | | | | Medica | | | [place] | | 016-Pr | | | id | | | [place] | | esent | | | | + +--------+ +--------+-------+---------+--------+ | MEDICAID OHP | OHP | [id number] | | | | Medica | | | ADVANT | | 016-Pr | | | id | | | AGE | | esent | | | | | | DENTAL | | | | | | | | SVC | | | | | | + +--------+ +--------+-------+---------+--------+ + +--------+ +--------+ + + | Guarantor Name | Accoun | Relation to | Date | Phone | Billing Address | | | t Type | Patient | of | | | | | | | | | | + +--------+ +--------+ + + | Andres Hansen | Person | Self [birth year] | [address] | | | al/Fam | | 1975 | [id number] | [place] [address] | | | anamaria | | | 0 (Home) | | + +--------+ +--------+ + + | Andres Hansen | Dental | Self | [birth year] | [address] | | | | | [facility] [id number] | [place] [address] | | | | | | 0 (Home) | | + +--------+ +--------+ + + Advance Directives + + + + + | Type | Date Recorded | Patient | Explanation | | | | 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
--- OUTSIDE RECORDS SUMMARY | ~2020-01-26 | XMS | Encounter Summary ---
Demographics + + + | Address | [address] | | | [place] [address] | + + + | Home Phone | | + + + | Preferred Language | Unknown | + + + | Marital Status | Single | + + + | Hinduism Affiliation | CHR | + + + | Race | White | + + + | Ethnic Group | Not or | + + + Author + + + | Author | [facility] | + + + | Organization | [facility] | + + + | Address | Unknown | + + + | Phone | Unavailable | + + + Support + + +---------+ + | Name | Relationship | Address | Phone | + + +---------+ + | Apoorva Lugo | ECON | Unknown | | + + +---------+ + Care Team Providers + +------+ + | Care Aluminum Molder Name | Role | Phone | + +------+ + | No Pcp Per Patient | PCP | Unavailable | + +------+ + Reason for Visit +--------+ + | Reason | Comments | +--------+ + | Hernia | | +--------+ + Encounter Details +--------+ + + + + | Date | Type | Department | Care Team | Description | +--------+ + + + + | 10/19/ | Emergency | [facility] Emergency | | | | 2009 | | Department [address] | | | | [address] | | | | | | [facility] | | | | | | [place], [place] | | | | | | [address] | | | | | | [phone] | | | +--------+ + + + [...] + + + | Blood Pressure | 174/84 | 10/19/2009 1:41 PM | | | | | PDT | | + + + + + | Pulse | 107 | 10/19/2009 1:41 PM | | | | | PDT | | + + + + + | Temperature | 36.6 C (97.9 F) | 10/19/2009 1:41 PM | | | | | PDT | | + + + + + | Respiratory Rate | 16 | 10/19/2009 1:41 PM | | | | | PDT | | + + + + + | Oxygen Saturation | 97% | 10/19/2009 1:41 PM | | | | | PDT | | + + + + + | Inhaled Oxygen | - | - | | | Concentration | | | | + + + + + | Weight | 99.8 kg (220 lb) | 10/19/2009 1:41 PM | | | | | PDT | | + + + + + | Height | - | - | | + + + + + | Body Mass Index | - | - | | + + + + + documented in this encounter ED Notes Tereso Stephens RN - 10/19/2009 5:45 PM PDTCalled for pt several times. Not in [facility]. Pt dis missed. ereso Stephens RN - 10/19/2009 4:47 PM PDTCalled for pt in [facility]. No response. ereso Stephens RN - 10/19/2009 1:42 PM PDTPt c/o swellin g and pain in groin with increase pain with bm and cough. States that he thinks it is a iveth ia. documented in this enc ounter Plan of Treatment Not on filedocumented as of this encounter Visit Diagnoses Not on filedocumented in this encounter"
--- OUTSIDE RECORDS SUMMARY | ~2020-01-26 | XMS | Encounter Summary ---
Demographics + + + | Address | [address] | | | [place] [address] | + + + | Home Phone | | + + + | Preferred Language | Unknown | + + + | Marital Status | Single | + + + | Tenriism Affiliation | CHR | + + + | Race | White | + + + | Ethnic Group | Not or | + + + Author + + + | Author | [facility] | + + + | Organization | [facility] | + + + | Address | Unknown | + + + | Phone | Unavailable | + + + Support + + +---------+ + | Name | Relationship | Address | Phone | + + +---------+ + | Apoorva Lugo | ECON | Unknown | | + + +---------+ + Care Team Providers + +------+ + | Care School Crossing Guard Supervisor Name | Role | Phone | + +------+ + | No Pcp Per Patient | PCP | Unavailable | + +------+ + Reason for Visit + + + | Reason | Comments | + + + | Groin pain | | + + + Encounter Details +--------+ + + + + | Date | Type | Department | Care Team | Description | +--------+ + + + + | 10/20/ | Emergency | [facility] Emergency | Lisandra, | | | 2009 | | Department [address] | MD William | | | | | [address] | Inderjit Madrid | | | | | [facility] | [facility] | | | | | [place], [place] | [address] | | | | | [address] | EMERGENCY | | | | | [phone] | [place] [address] | | | | | | [phone] | | | | | | | [...] + + + | Blood Pressure | 156/100 | 10/20/2009 8:36 AM | | | | | PDT | | + + + + + | Pulse | 94 | 10/20/2009 8:36 AM | | | | | PDT | | + + + + + | Temperature | 36.6 C (97.9 F) | 10/20/2009 8:36 AM | | | | | PDT | | + + + + + | Respiratory Rate | 14 | 10/20/2009 8:36 AM | | | | | PDT | | + + + + + | Oxygen Saturation | 98% | 10/20/2009 8:36 AM | | | | | PDT | | + + + + + | Inhaled Oxygen | - | - | | | Concentration | | | | + + + + + | Weight | 97.5 kg (215 lb) | 10/20/2009 8:36 AM | | | | | PDT | | + + + + + | Height | - | - | | + + + + + | Body Mass Index | - | - | | + + + + + documented in this encounter Discharge Instructions Instructions William Fry MD - 10/20/2009bdominal Pain Abdominal (belly) pain can be caused by many things. Your caregiver decides the seriousness of your pain by an examination and possibly blood tests and x-rays. Many cases can be obser kane and treated at home. Most abdominal pain in children is functional. This means it is not caused by a disease and will probably improve without treatment. However, in many cases, m ore time must pass before a clear cause of the pain can be found. Before that point, it may not be known if you need more testing, or if hospitalization or surgery is needed HOME CARE INSTRUCTIONS: Do not take or give laxatives unless directed by your caregiver. Take pain medication only if ordered by your caregiver. Only take cnih-hev-havhttj or prescription medicines for pain, discomfort or fever as di rected by your caregiver. Try a clear liquid diet - broth, tea, or water as ordered by your caregiver. Slowly move to a bland diet as tolerated. seek immediate medical attention if: The pain does not go away. An oral temperature above 102 F (38.9 C) develops or as directed by your caregiver. Repeated vomiting occurs. The pain is felt only in portions of the abdomen. The right side could possibly be appen dicitis. In an adult, the left lower portion of the abdomen could be colitis or diverticulit is. Blood is being passed in stools (bright red or black tarry stools). Make sure you: Understand these instructions. Will watch your condition. Will get help right away if you are not doing well or get worse. Document Released: 05/14/2006 Document Re-Released: 04/26/2009 [facility] Patient Information 2009 [employer]. Hernia (Inguinal) Your child has an inguinal (groin) hernia. An inguinal hernia is a hernia located in the gr oin. About half of these conditions appear before one year of age. They occur because the wa ll of the lower abdomen (belly) is weak. You have probably brought your child in because you noticed a bulge in the groin, labial, or testicular area. Because the hernia connects with the abdomen, the only treatment is a surgical repair. Not having a repair puts the child at risk. The bowel can get stuck in the hernia sack risking i njury to the bowel and then causing emergency surgery. You should consider elective surgery (you can pick a convenient time for the procedure). When the bulge is noticeable to you, do not attempt to force it back in. This could cause d amage to the structures inside the bulge (hernia) and seriously injure your child. If this h appens, you should see your caregiver immediately or go directly to your Emergency Departmen t. Because many hernias are on both sides, your caregiver may schedule both sides for repair d uring elective surgery. [facility] Patient Information 2006 [employer]hatNoise. Low Cost Provider Referral Information by [facility] *[facility] Qualified Health Clinics [facility] Wait time to be seen can be up to 30 days New patients w/o insurance are seen the first of the month, patients to call in @8am [address] [facility] [place] [id number] *[facility] Low income uninsured individuals and families basis health care services for acute health i ssues managing care for diabetes, asthma, and hypertension, specialist referrals women's exa ms; appts only; Sunday and evening, only 4-8 PM & Sunday 6p-8p. (Note: Planning to increase hours possibly ) [address] [place] [address] Sunita Lockwood De [place] Nicole [address] [place], [place] [address] New Patients: [phone] Mon-Fri 8:30 am to 5pm [facility] Eleven primary care clinics in the [facility] Services are available to uninsured or underinsured persons Costs of services are based on sliding scale Must fill out financial Assistance Application Contact [phone] ([place]) [phone] ([place]) or [phone] to obtain application M-F 86:45 *[facility] Financial screening required before an appointment will be made. [address] [facility] [address] Low Cost Provider Referral Information by [facility] *[facility] *[facility] Two decedents of federal recognized [place], required. New patient seen within one week. [address], [place] [address] *[facility] [address] [place], [place] [address] *Outside In Emphasis of patients under age 30 but will serve anyone of low or no income and the uninsur ed. [address] [place], [place] [address] *[facility] Must have low income and no insurance. No walk-in services. [facility] residents only. [address] [place], [place] [address] *[facility] Locations Clinic for uninsured people only Does not see patients with [place] health Plan or other insurance coverage Dermatology and Podiatry available twice/month [address] [place], [place] [address] *[facility] Services all ages. Clinics held on Sunday and Sunday evenings. Doors open at 5:30 pm. Patients are accepted until 8 pm, or until clinic fills. No appointment required. [address] [place], [place] [address] (located next to the [facility]) *[facility] Services for all ages. Clinics held on evenings. Call for an appointment for the [facility] clinic. [phone]. Doors open at 6:30 p.m. Appointment required. Located inside the [facility] at [address] [place], [place] [address] *[place] [facility] A [facility] hospital clinic offering health services to low income uninsured adult residents of [facility] following zip codes: [address], [address], [address], [address], and [address] Does not provide pediatric care, mental health services, and obstetric care, or de ntal care. walk-ins: 5:30 to 8:30 pm with follow ups on Sunday pm. Age Restrictions: Between age 18 and 64. Note will be moving soon to the [facility] at [address] [facility]. [address] [place] [address] *[facility] [address] [place] [address] Serving uninsured and underinsured children up to age 21. [facility] *Federally Qualified Health Clinics [facility]oint[facility] 1 week out M-F 9am - 7pm, S 10am - 2pm [address]. [address] [place], [place] [address] [facility] ([facility] residents, only) [address] [place] [address] [id number] [facility] *Federally Qualified Health Clinics [facility] ([facility] residents only) Vision care at [place] [facility] Mobile van unit for health care Mobile van unit for dental care for children only Children's dental care at [place], [place], and [place] [address] [facility] [address] [place], [place] [phone] [place], [place] [address] [place], [place] [address] [phone] [facility] (school based health center) [address] [place], [place] [id number] [facility] Provides free urgent care for uninsured individuals and families in [address] [phone] Tues & Thurs 4:30-6:30 pm, ONLY Weds 4:30-6:30 pm, ONLY [facility] *Federally Qualified Health Clinics [facility] (now call center for [facility]) [place] [address] [place] [address] [facility] [address] [facility] [place] [place] [address] [facility] [address] [place] [address] [facility] Call for an appointment [address] [place] [address] Dental Clinics Dental Service Referral Information for low Income/sponsored/OHP Standard patients. [facility] [address] [place] [address] [facility] Dental Services [facility] [address] 9th Floor [facility] [place] [address] Please call [phone] for referral between 7:30 am and 6:30 pm to any of the clinics lis emmanuelle below. Service for OHP-[facility] Dental enrollees and emergency service fore uninsured OPH Plus-Co mprehensive dental services for adults and children. No fees for OHP covered with [facility]. Uninsured - Sliding fee based on family size and income. [facility] Dental Clinic [facility] [address] [place] [address] [place], [place] [phone] For Uninsured [phone] Hours: M-F, 7:30-6:00 pm Hours: M-F 7:30-6:00 pm [facility] [address] [place] [address] [place], [place] [id number] Hours: M-F 7:30-6:00 pm Hours: M-F 7:30-6:00pm Servicfor OHP - [facility] Dental Access Program [phone] Hours: M-F 7:30-6:00pm Provides triage and referral for uninsured, low income adults a and children Refers to the above four clinics for dental care for emergency dental care and limited rout ine care Serve [facility] residents $25 nominal fee required at each visit Additional fees based on family size and income. DENTAL CARE FOR CHILDREN [facility] Dental Center located at [facility] Provides general dentistry for K-12 registered [facility] student Call for appointment, no walk-ins Must qualify for free and reduced lunch and bring approval sheet to dental appointment Sees children with no dental insurance and no OHP No charge for service-donations encouraged [facility] [address] [place], [place] [id number] Hours: 8:30-3:00 during academic school year [facility] Dental Clinic Specialized only for children with special health needs and medically fragile children, scrap metal collector niofacial defects, and speech problems. Fees are less than regular clinic fees. [address] [place] [address] Hours: - 8:30-5:00 to schedule appointments [phone] [facility] Dental Check and Dental Aid Program Annual routine dental checks at schools for low-income children. Contact for annual schedule of dental check dates and school location [address] [place] [address] Contact: Mr. Chen Email: [email or web address] Provides dental services up to age 21 Call for appointments Accepts most insurance - Medicaid DSHS, OHP, discounts for un-insured [address] [place] [address] Hours: M 2-7, -F 9-7, Sat 9-2 DENTAL CARE FOR THE ELDERLY AND MENTALLY DISABLED [facility] Provide free dental care to low income individuals with developmental disabilities, permane nt disabilities, and the elderly Do not provide emergency care Call for appointments, the wait lists up to one year long in some areas. [address] [address] [place] [address] Hours: - 8-4:30 Exceptional Needs [...] be met in the home setting. [address] [place], [place] [phone] [facility] Provides dental care for patient 55 and older; wheelchair accessible New patients: $35 basic fee plus required full mouth x-ray for ($50 $85 total) Returning patients: 20-40% less than a regular clinic [address] [place] [address] Hours: -F 8:30-5 [facility] Provides dental care for low income, uninsured senior age 64 and older Does not provide emergency care or dentures [facility] resident only Call for application packet, after application is processed, referral to a participating de ntist is made 50% reduction for regular dental procedures [address] [place], [place] [phone] CLEANING, X-RAYS, and GENERAL DENTISTRY [facility] Clinic operates on student schedules; closed Patients seen by appointment only Serves the [facility] Wheelchair access Dental hygiene, teeth cleaning, X-rays, dental exams, fluoride treatments See website for charges [address] [place] [address] [facility] Dentistry General Dentistry - 8-5 pm Free evaluation Discounted services including dentures, oral surgery, and orthodontics Does not accept Medicaid Specialty clinics [address] [place] [phone] [facility] ([facility]) Services by appointment only Emergency services and extraction not provided Provides Hygiene services and X-rays Reduced fees: Children $20, adults $40 (pricing subject to change) Discount for adults 62 years and older [address] [place] [address] [facility] Currently accepting emergencies only, New patients are not currently being accepted - 7:30 to 7; F 7:30 - 5; Sat 8-4 [address] [place] [address] DENTAL VANS [employer] Mobile Dental Program Hotline number: [phone] Provides free dental to low-income individuals with urgent needs who do not have access to dental care, insurance, or money to pay for services Appointment required. Must call hotline number and leave name and contact number. If appo intment available they will r/c and indicate location and time of appointment Three vans available for [facility], one for [facility] HEALTH SERVICES [facility] Provides mental health and additions treatment services in four different clinics Provides transitional and permanent housing for people with psychiatric disabilities Crisis Line: [phone] Access, Information, and Referral: [phone] [facility] ([address] [place] [address]) Takes non-sponsored/OHP Take Bus #4 from [facility] - it stops in front of clinic Prescirbers available until 10pm Counselors available 18/12 Entrance is at the corner of [address] [place] [address] [facility] [address] [facility] [address] [place] [address] [facility] [address] [place] [address] [facility] [address] [address] [place] [address] PRESCRIPTION DRUG PROGRAMS [place] Prescription Drug Program Available to any [place] resident that is uninsured or underinsured for [...] Programs Available at participating providers such as Jeanette Landa, Ramone, etc. documented in this encounter Medications [...] documented as of this encounter ED Notes Stef Soria - 10/20/2009 9:26 AM PDTRN DISCHARGE NOTE: The patient verbalizes understanding of written discharge/home care instructions as a evide nced by Follow-up plan of care reviewed w/ patient, Pt voiced understanding of plan of care and Written dx instructions reviewed w/ patient. The patient was discharged Ambulatory via Private Vehicle with self in no emergent distress. Yrn Felder RN - 010 8:39 AM PDTPt presents w/ c/o of lump and pain to L inguinal area starting approx 1.5 wks ago. Stef Burris - 10/20/2009 8:35 AM PDTPt here co as written in triage notes, pt changing into gown at prese nt, urine container provided for sample. William Rodriguez MD - 10/20/2009 8:35 AM PDT Emergency Department Provider Note 8:35 AM, WILLIAM FRY MD, Faculty Note Provider and Medical Decision Making Note: HPI : Pt is a 34 y/o male with hx of chronic back pain and documented narcotic seeking beha viours who presents to the ED c/o L sided inguinal and groin pain that has been present inte rmittently for the last week. Pt states that he has also noted a lump in his groin at times. Lump has now become smaller. Pt denies nausea and vomiting. Has been tolerating PO without difficulty. Pt reports worsening pain when having a bowel movement but denies constipation. Does report that at times the pain radiates to his testicles but denies penile discharge, dy suria and hematuria. No testicular pain at this time. Reports chronic back pain that is not significantly changed. Review of Systems: A complete review of systems was performed, including the following and were negative excep t as noted in the HPI or below: Pt denies: Headache, vision changes, sore throat, cough, SOB, chest pain, abdominal pain, d iarrhea, fevers, dysuria, hematuria, leg pain and leg swelling, rashes Reviewed old charts/Medical records for the following findings: Previous notes and results significant to this ED visit. Allergies: Allergies Allergen Reactions Ibuprofen Aspirin Tramadol Hives PMHx: Past Medical History Diagnosis Date Other general symptoms gamez, chronic back pain Fam Hx: No family history on file. Noncontributory to today's ED visit. Social Hx: History Substance Use Topics Tobacco Use: Yes 1/2 PPD Alcohol Use: Yes rarely Denies illicit drug use Smoking cessation counseling given: Pt counseled about the health risks associated with tob acco use and the benefits of immediate cessation. Physical Exam: ED Triage Vitals BP Temp Pulse Resp SpO2 -- -- -- -- -- PE: There were no vitals taken for this visit. General: NAD HEENT: NC+AT, MMM, no oropharyngeal erythema or exudates NECK: Supple LUNGS: CTA b/l HEART: RRR, no murmurs ABDOMEN: Soft, NT+ND, +BS GENITALS: No palpable masses in inguinal region, no testicular lesions, masses or tendernes s to palpation. No penile discharge. No inguinal lymphadenopathy. EXTREMITIES: No edema NEURO: A+Ox3 ED COURSE: Pt presents with L sided inguinal pain and reports of a lump/mass in the area. Benign abdom inal exam with no tenderness. Pt with no signs or symptoms of SBO. No evidence of inguinal h ernia at this time. Hx and exam not suggestive of testicular torsion or renal colic. Pt reas sured. Pt has a hx of narcotic seeking behavior regarding his back pain. Given this appears to be a new complaint for him he was given a prescription for 6 oxycodone tabs and instructe d to contact CM as well as to seek follow up with low cost providers. Pt discharged home wit h instructions to follow up with a PCP and to return to the ED for worsening symptoms. Pt vo iced understanding of the instructions and was comfortable with the plan. Condition Upon Discharge: Stable IMPRESSION: 1. Inguinal pain 2. Groin pain documented in [facility] encounter Miscellaneous Notes Scan - Other, Faculty - 10/23/2009 3:25 AM PDT ED Teaching Notes - William Fry MD - 10/20/2009 8:34 AM PDTPt was seen by dariela robin without resident involvement. Please see Provider Note for details. documented in [facility] encounter Plan of Treatment Not on filedocumented as of this encounter Visit Diagnoses + + | Diagnosis | + + | Groin pain - Primary Abdominal pain, unspecified site | + + documented in this encounter"
--- OUTSIDE RECORDS SUMMARY | ~2020-01-26 | XMS | Encounter Summary ---
Demographics + + + | Address | [address] | | | [place] [address] | + + + | Home Phone | | + + + | Preferred Language | Unknown | + + + | Marital Status | Single | + + + | Anglican Affiliation | CHR | + + + | Race | White | + + + | Ethnic Group | Not or | + + + Author + + + | Author | [facility] | + + + | Organization | [facility] | + + + | Address | Unknown | + + + | Phone | Unavailable | + + + Support + + +---------+ + | Name | Relationship | Address | Phone | + + +---------+ + | Apoorva Lugo | ECON | Unknown | | + + +---------+ + Care Team Providers + +------+ + | Care Duck Bill Operator Name | Role | Phone | + +------+ + | No Pcp Per Patient | PCP | Unavailable | + +------+ + Encounter Details +--------+ + + + + | Date | Type | Department | Care Team | Description | +--------+ + + + + | 06/21/ | Hospital | Registration [id number] | Cody Anderson MD | | | 2007 | Activity | [address] | [address] | | | | | Jeremiah Mailcode: [id number] | [address] | | | | | [place], [place] | [place], [place] | | | | | [address] | [address] | | | | | [phone] | [phone] | | | | | | | [...]
[~2020-01-26 08:38] MED LIST: CLINDAMYCIN HC300 MG PO; CLONIDINE HCL0.2 MG PO; ERYTHROMYCIN500 MG PO; HYDROCODON-ACE1 EA10 PO; LIDOCAINE HCL100 ML MT; LISINOPRIL10 MG; METOPROLOL TART50 MG; METOPROLOL TART50 MG PO; NORCO 7.5-3251 EACH PO; PENICILLIN V P500 MG PO; PERCOCET 10-321 EACH PO; PREDNISONE20 MG PO; PROVENTIL HFA6.7 GM INH; TRAMADOL HCL50 MG PO; TYLENOL WITH C1 EACH PO
--- OUTSIDE RECORDS SUMMARY | 2020-01-26 08:40 | XMS ---
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 Care History Behavioral 11/19/2015 [facility] PT DISCHARGED FROM PCP AT [facility] DUE TO BEHAVIOR - MISCONDUCT TOWARD STAFF. PT CAN COME TO THE WALK-IN CLINIC, BUT HAS NOT PCP STATUS. Substance Use/Overdose 05/23/2016 [facility] PT SIGNED PAIN CONTRACT WITH PCP (DR W[facility] IN 2013 FOR NORCO AND PERCOCET. E.D. VISIT COUNT (12 MO.) 2 [facility]. TOTAL 2 NOTE: Visits indicate total known visits. ED/UCC VISIT TRACKING (12 MO.) 01/26/2020 08:38 [facility] [place] TYPE: Emergency COMPLAINT: - EAR PAIN, POSSIBLE INFECTION 08/12/2019 16:11 [facility] [place] TYPE: Emergency COMPLAINT: - R EYE INJURY DIAGNOSES: - Exposure to other specified factors, initial encounter - Injury of conjunctiva and corneal abrasion without foreign darlene - Essential (primary) hypertension - Ocular pain, right eye - Nicotine dependence, unspecified, uncomplicated - Spasm of accommodation, right eye INPATIENT VISIT TRACKING (12 MO.) No inpatient visits to display in this time frame [id number]
[2020-01-26] MEDS ORDERED: DOXYCYCLINE HY100 MG PO (08:59)
[2020-01-26] MEDS ORDERED: MUPIROCIN22 GM TOP (08:59)
== END 2020-01-26 09:22 | disposition home or self-care (01) ==
LOC: ED 08:38
DX: L98.9 Disorder of the skin and subcutaneous tissue, unspecified (principal); I10 Essential (primary) hypertension; F17.200 Nicotine dependence, unspecified, uncomplicated; Z88.8 Allergy status to other drugs, medicaments and biological substances
CPT/HCPCS: 99283